=== PATIENT | female | born 1980 | race Caucasian/White ===

== ENCOUNTER → 2018-03-03 17:24 | Outpatient (CLI) | payer OTHER, SELFPAY ==
--- NOTE | 2018-03-03 17:29 | DI.RAD.S_ITS ---
PROCEDURE: XR KNEE LT 3V INDICATIONS: LEFT KNEE PAIN TECHNIQUE: 3 views of the knee were acquired. COMPARISON: None. FINDINGS: Bones: No fractures or dislocations. No suspicious bony lesions. Moderate medial compartment and lateral facet degenerative osteoarthritis involving the knee, without effusion or definite loose body found. There are several small calcifications at the posterior mesial lateral view that may represent osteochondral loose bodies within a Harris's cyst. Soft tissues: No joint effusion. No suspicious soft tissue calcifications. IMPRESSION: Osteoarthritic change is most prominent at the medial compartment and the lateral facet of the patellofemoral joint. As discussed above on the lateral view there are several small rounded calcifications superimposed on the posterior border of the knee potentially within a Harris's cyst. This, however, in this position could conceivably represent intra-articular loose bodies. MR scanning would assist in differentiating between these possibilities. Dictated by: Melvin Gillespie M.D. on 03/04/2018 at 6:58 Approved by: Melvin Gillespie M.D. on 03/04/2018 at 8:15
== END ==
PROVIDERS: Visit Provider Family Medicine
DX: M25.562 Pain in left knee (principal); M17.12 Unilateral primary osteoarthritis, left knee
CPT/HCPCS: 73562

== ENCOUNTER → 2022-02-17 10:10 | Outpatient (CLI) | payer BC, SELFPAY ==
--- NOTE | 2022-02-17 10:12 | DI.MRI.S_ITS ---
PROCEDURE: MR KNEE LT WO CON INDICATIONS: Pain in left knee TECHNIQUE: Noncontrast sagittal PD fast spin echo and T2 fast spin echo with fat saturation, sagittal 3-D FLASH with fat saturation; coronal T1 spin echo and PD fast spin echo with fat saturation, and axial PD fast spin echo with fat saturation through the knee. COMPARISON: [facility], CR, XR KNEE LT 3V, 03/03/2018, 17:29. FINDINGS: Image quality: Excellent. Menisci: There is lateral meniscal extrusion. There is complex tear of the posterior horn and body of the lateral meniscus, extending to the posterior root. There is nondisplaced horizontal tear in the peripheral aspect of the posterior horn and body of the medial meniscus. Cruciate ligaments: Anterior cruciate ligament is small, which may be congenital. There is suggestion of chronic partial tear of the distal ACL and mucoid degeneration of ACL. The posterior cruciate ligament appears intact. Medial structures: The medial collateral ligament appears intact. The semimembranosus tendon insertions and meniscocapsular junction appear intact. Visualized portions of the pes anserinus tendons appear normal. No abnormal bursal fluid. Lateral structures: The lateral collateral ligament and the biceps femoris tendon appear intact. The popliteus tendon appears normal. Iliotibial band appears normal. Anterior structures: The quadriceps and patellar tendons appear intact. Patellar alignment is normal. No femoral trochlear dysplasia or ventral trochlear prominence. No edema in the infrapatellar fat pad. Bones and cartilage: No bone marrow contusions or fractures. There is tricompartmental cartilage thinning and fibrillation, most pronounced in the lateral femorotibial compartment with cartilage denuded weight-bearing articular surface in the lateral femoral condyle and lateral tibial plateau. Joint space: There is moderate sized knee joint effusion. There is a moderate size multilocular Harris's cyst. Normal appearing synovial plicae are incidentally noted. Small ganglion cyst or synovial cysts are seen in the posterior superior knee joint. Multiple intra-articular bodies are noted in the posterior knee joint at the level of the intercondylar notch. Varicose veins are noted in the left lower extremity. A lymph node is seen in the distal posterior thigh measuring 0.8 cm in short axis. IMPRESSION: 1. Bladder meniscal extrusion with complex tear of the posterior horn and body. 2. Nondisplaced tear of the posterior horn and body of the medial meniscus. 3. Question chronic partial tear of distal ACL. There is mucoid degeneration of ACL. 4. Severe cartilage loss in the lateral femorotibial compartment with denuded weight-bearing articular surface in the lateral femoral condyle and lateral tibial plateau. 5. A moderate-sized Harris's cyst. 6. There are intra-articular bodies in the posterior knee joint. 7. Moderate sized knee joint effusion. Dictated by: Alex Baptiste M.D. on 02/21/2022 at 7:32 Approved by: Alex Baptiste M.D. on 02/21/2022 at 9:49
== END ==
PROVIDERS: Referring Provider Family Medicine; Visit Provider Family Medicine
DX: S83.232A Complex tear of medial meniscus, current injury, left knee, initial encounter (principal); M25.562 Pain in left knee; M71.22 Synovial cyst of popliteal space [Baker], left knee; M25.462 Effusion, left knee
CPT/HCPCS: 73721

== ENCOUNTER 2022-05-24 09:18 | Inpatient (IN) | payer BC, SELFPAY ==
[2022-05-24] VITALS (82 sets, daily range): BP systolic 107–208; BP diastolic 72–123; PULSE 83–121; RESP 13–34; TEMP 36.4–36.8; O2SAT 91–99; BMI 53.0
--- NOTE | 2022-05-24 09:28 | DI.RAD.S_ITS ---
PROCEDURE: XR CHEST 1V INDICATIONS: Shortness of breath TECHNIQUE: One view of the chest was acquired. COMPARISON: None. FINDINGS: Surgical changes and devices: None. Lungs and pleura: Lungs are clear. No pleural effusions or pneumothorax. Mediastinum: Mediastinal contours appear normal. Cardiomegaly. Bones and chest wall: No suspicious bony lesions. Overlying soft tissues appear unremarkable. IMPRESSION: Cardiomegaly. No evidence acute pulmonary process. Dictated by: Mickey Gleason M.D. on 05/24/2022 at 10:01 Approved by: Mickey Gleason M.D. on 05/24/2022 at 10:02
[2022-05-24 10:11] LABS: Add Manual Diff / Slide Review NO; Basophils Absolute Auto 100 /uL (0-100); Eosinophils Absolute Auto 100 /uL (0-450); Eosinophils Percent Auto 0.9 % (2-4); Hemoglobin 12.7 g/dL (12.0-16.0); Lymphocytes Absolute Auto 2400 /uL (1100-4500); Lymphocytes Percent Auto 24.9 % (25-40); Mean Corpuscular HGB Conc 32.5 % (30-36); Mean Corpuscular Hemoglobin 25.5 PG (26-34); Mean Corpuscular Volume 78.6 fL (80-100); Monocytes Absolute Auto 700 /uL (0-900); Neutrophils Absolute Auto 6400 /uL (1500-7000); Neutrophils Percent Auto 66.2 % (50-75); Platelet Count 168 X10^3/uL (150-400); Red Blood Cell Count 4.96 X10^6/uL (4.0-5.2); Red Cell Distribution Width 16.8 % (11.6-14.8); White Blood Cell Count 9.6 X10^3/uL (4.5-11.0)
[2022-05-24 10:12] LABS: INR 1.1 (0.9-1.3); Prothrombin Time 12.9 SECONDS (10.1-12.7)
[2022-05-24 10:17] LABS: Alanine Aminotransferase 26 IU/L (<35); Albumin 4.1 g/dL (3.5-5.0); Albumin Globulin Ratio 1.1 (1.0-2.8); Alkaline Phosphatase 103 U/L (38-126); Aspartate Aminotransferase 25 IU/L (14-36); Bilirubin Total 1.3 mg/dL (0.2-1.3); Blood Urea Nitrogen 17 mg/dL (7-17); Calcium 9.3 mg/dL (8.4-10.2); Carbon Dioxide 23 mmol/L (22-32); Chloride 104 mmol/L (98-107); Estimated Glomerular Filt Rate > 60 mL/min (>60); Globulin 3.8 g/dL (1.7-4.1); Glucose 101 mg/dL (70-100); HEMOLYSIS < 15 (0-50); Potassium 3.8 mmol/L (3.4-5.1); Sodium 136 mmol/L (137-145); Total Protein 7.9 g/dL (6.3-8.2)
[2022-05-24 10:29] LABS: NT-proBNP (BNP-Adult 18+) 606 pg/mL (<125); Troponin I 0.014 ng/mL (0.01-0.034)
--- NOTE | 2022-05-24 10:29 | ED_ITS ---
HPI - Chest Pain General Chief Complaint: Shortness of Breath/Dyspnea Stated Complaint: sent by Kelin HUMMEL/SOB/chest pain T-1 Time Seen by Provider: 05/24/22 10:28 Source: patient Mode of arrival: Ambulatory Limitations: no limitations History of Present Illness HPI narrative: This is a 41-year-old female with history of hypertension on amlodipine, chlorthalidone and meloxicam daily who states yesterday she developed a little bit of a headache around 12 30 in the afternoon which is not atypical she states she does get migraine she states this isn't been quite as intense. She took 1 of her 's [place] at 6:30 a.m. in the evening later that night when she went to lay flat she felt wheezy and short of breath and sort of gurgly in her chest. When she sat up it helped the wheezing gurgly sound go away but she still feels a little short of breath and that has been persistent. She is had a little bit of substernal chest pain radiate a little bit to left arm and left side. She states patient states she is noticed a little bit of exertional dyspnea. She states she has not had similar symptoms in the past except for when she lays flat she will sometimes feel a little wheezy or short of breath. She states it is never been persistent. She is been a little bit of sweaty intermittently at night, she would some nausea. She denies any vomiting. She swelling of her extremities. No issues with bowel movements or urination. She states no new changes for her headache and that it is not as intense as her typical migraines. She has not had any other new neurologic changes. She denies cough cold or congestion. Patient states she took her home medications including her amlodipine 5 mg, chlorthalidone 25 mg for 430 this morning she usually takes it at 8:00 a.m. patient states no prior surgeries. She did try some Tylenol, naproxen hydrocodone at home last night. No known drug allergies. No tobacco, no alcohol, no illicit. Family history she has several uncles all over the age of 50 who had cardiac issues as well as her mom. She does not believe anyone was under the age of 50 or 60 before they had medical issues. Dr. Gurrola is her primary care. Related Data Home Medications Medication Instructions Recorded Confirmed amlodipine 5 mg tablet 5 mg PO DAILY 05/24/22 05/24/22 chlorthalidone 25 mg tablet 25 mg PO DAILY 05/24/22 05/24/22 Allergies Allergy/AdvReac Type Severity Reaction Status Date / Time No Known Drug Allergies Allergy Verified 05/24/22 09:28 Review of Systems Review of Systems ROS Unobtainable: All systems reviewed & are unremarkable except as noted in HPI and below Patient History Medical History HTN (hypertension) Surgical History No pertinent past surgical history Family History Mother CAD (coronary artery disease) Uncle CAD (coronary artery disease) Social History Smoking Status: Unknown if ever smoked Smoking Status: Unknown if ever smoked alcohol intake frequency: holidays/special occasions only Substance Use Type: does not use Exam Narrative Exam Narrative: GENERAL: Alert and oriented x three, female in mild distress. HEENT: Head normocephalic, atraumatic, EOMI, pupils reactive, face symmetric, moist mucous membranes NECK: Supple, full range of motion CARDIOVASCULAR: Regular rate and rhythm without murmurs, rubs or gallops. No JVD. No edema bilateral lower extremities. RESPIRATORY: Breath sounds equal bilaterally, no wheezes rales or rhonchi. No tachypnea. Speaks in full sentences. ABDOMEN: Soft, nontender. Normoactive bowel sounds all 4 quadrants. No guarding or rebound, rigidity, no mass : No CVA tenderness EXTREMITIES: Normal range of motion, no clubbing or edema. Neurovascularly intact NEUROLOGICAL: Cranial nerves II through XII grossly intact. Moving all extremities SKIN: Warm, dry, no petechiae, no rashes or lesions. Initial Vital Signs Initial Vital Signs: Vital Signs Temperature 98.2 F 05/24/22 09:23 Pulse Rate 121 H 05/24/22 09:23 Respiratory Rate 20 05/24/22 09:23 Blood Pressure 208/123 H 05/24/22 09:23 Pulse Oximetry 96 05/24/22 09:23 Oxygen Delivery Method Room Air 05/24/22 09:23 Course Orders Ordered: ED Orders 05/24/22 09:28 XR chest 1V Stat 05/24/22 09:30 Respiratory Panel (Film Array) Stat 05/24/22 09:35 EKG-12 Lead Stat 05/24/22 10:00 Complete Blood Count AUTO DIFF Stat Comprehensive Metabolic Panel Stat D Dimer Stat Lactate (Lactic Acid) Stat NT-proBNP (BNP-Adult 18+) Stat Prothrombin Time INR Stat Troponin I Stat 05/24/22 11:13 CT angio chest PE protocol Stat 05/24/22 12:03 Trop I [Troponin I] Stat Acetaminophen (Acetaminophen 325 Mg Tablet) 975 mg PO Q8H PRN PRN Reason: Fever/Mild Pain (1-3) Aspirin (Aspirin Ec 81 Mg Tablet) 81 mg PO DAILY YESSENIA Atorvastatin Calcium (Atorvastatin 20 Mg Tablet) 40 mg PO BEDTIME YESSENIA Enoxaparin Sodium (Enoxaparin 40 Mg/0.4 Ml Syringe) 40 mg SUBCUT DAILY YESSENIA Naloxone HCl (Naloxone 0.4 Mg/Ml Vial) 0.2 mg IV Q2MIN PRN PRN Reason: Opiate Reversal Ondansetron HCl (Ondansetron 4 Mg/2 Ml Inj) 4 mg IV Q4HR PRN PRN Reason: Nausea And Vomiting Last Admin: 05/24/22 15:13 Dose: 4 mg Documented By: RB Ondansetron HCl (Ondansetron 4 Mg/2 Ml Inj) 4 mg IV Q8HR PRN PRN Reason: Nausea And Vomiting Oxycodone HCl (Oxycodone Ir 5 Mg Tablet) 5 mg PO Q4HR PRN PRN Reason: Pain, Moderate (4-6) Discontinued Medications Acetaminophen (Acetaminophen 325 Mg Tablet) 975 mg PO NOW ONE Stop: 05/24/22 13:24 Last Admin: 05/24/22 13:32 Dose: 975 mg Documented By: RB Aspirin (Aspirin 81 Mg Chew Tab) 324 mg PO NOW ONE Stop: 05/24/22 10:50 Last Admin: 05/24/22 10:56 Dose: 324 mg Documented By: KB Furosemide (Furosemide 40 Mg/4 Ml Vial) 40 mg IV NOW ONE Stop: 05/24/22 12:15 Last Admin: 05/24/22 12:40 Dose: 40 mg Documented By: MANNY Morphine Sulfate (Morphine 4 Mg/Ml Inj) 4 mg IV NOW ONE Stop: 05/24/22 11:14 Last Admin: 05/24/22 11:29 Dose: 4 mg Documented By: MADELIN Nitroglycerin (Nitroglycerin 0.4 Mg Sl Tab) 0.4 mg SL NOW ONE Stop: 05/24/22 10:46 Last Admin: 05/24/22 10:56 Dose: 0.4 mg Documented By: MADELIN Vital Signs Vital signs: Vital Signs - 8 hr 05/24/22 10:56 05/24/22 09:40 05/24/22 09:45 Pulse Rate 101 H 91 H 102 H Respiratory Rate 22 19 Blood Pressure 163/91 H Pulse Oximetry 96 97 05/24/22 09:50 05/24/22 09:55 05/24/22 10:00 Pulse Rate 93 H 99 H 95 H Respiratory Rate 30 H 20 29 H Blood Pressure Pulse Oximetry 98 97 96 05/24/22 10:10 05/24/22 10:15 05/24/22 10:20 Pulse Rate 104 H 96 H 97 H Respiratory Rate 23 23 Blood Pressure Pulse Oximetry 96 97 96 05/24/22 10:25 05/24/22 10:30 05/24/22 10:35 Pulse Rate 94 H 92 H 97 H Respiratory Rate 23 22 18 Blood Pressure Pulse Oximetry 97 96 96 05/24/22 10:40 05/24/22 10:45 05/24/22 10:50 Pulse Rate 95 H 105 H 100 H Respiratory Rate 32 H 25 H 21 Blood Pressure Pulse Oximetry 97 97 97 05/24/22 10:55 05/24/22 10:56 05/24/22 10:56 Pulse Rate 97 H 100 H Respiratory Rate 23 28 H Blood Pressure 169/93 H Pulse Oximetry 97 97 05/24/22 11:00 05/24/22 11:00 05/24/22 11:05 Pulse Rate 106 H Respiratory Rate 20 Blood Pressure 148/90 H 139/81 Pulse Oximetry 96 05/24/22 11:05 05/24/22 11:10 05/24/22 11:10 Pulse Rate 103 H 98 H Respiratory Rate 21 13 Blood Pressure 136/79 Pulse Oximetry 95 95 05/24/22 11:15 05/24/22 11:15 05/24/22 11:26 Pulse Rate 91 H 85 Respiratory Rate 24 Blood Pressure 137/74 Pulse Oximetry 95 99 05/24/22 11:30 05/24/22 11:31 05/24/22 11:31 Pulse Rate 90 87 Respiratory Rate 19 22 Blood Pressure 142/84 H Pulse Oximetry 97 97 05/24/22 11:35 05/24/22 11:40 05/24/22 11:45 Pulse Rate 91 H 89 86 Respiratory Rate 19 21 21 Blood Pressure Pulse Oximetry 93 95 95 05/24/22 11:50 05/24/22 11:55 05/24/22 12:00 Pulse Rate 93 H 91 H 93 H Respiratory Rate 21 18 Blood Pressure Pulse Oximetry 94 94 91 05/24/22 12:05 05/24/22 12:10 05/24/22 12:15 Pulse Rate 95 H 91 H 95 H Respiratory Rate 24 Blood Pressure Pulse Oximetry 94 92 95 05/24/22 12:20 05/24/22 12:25 05/24/22 12:30 Pulse Rate 95 H 95 H 95 H Respiratory Rate 25 H 27 H Blood Pressure Pulse Oximetry 95 95 97 05/24/22 12:35 05/24/22 12:40 05/24/22 12:45 Pulse Rate 98 H 99 H 100 H Respiratory Rate 21 30 H 34 H Blood Pressure Pulse Oximetry 97 96 96 05/24/22 12:50 05/24/22 12:55 05/24/22 13:02 Pulse Rate 100 H 92 H 99 H Respiratory Rate 30 H 19 20 Blood Pressure Pulse Oximetry 95 95 94 05/24/22 13:05 05/24/22 13:10 05/24/22 13:15 Pulse Rate 88 92 H 94 H Respiratory Rate 20 25 H 18 Blood Pressure Pulse Oximetry 97 94 93 05/24/22 13:18 05/24/22 13:18 05/24/22 13:20 Pulse Rate 93 H 94 H Respiratory Rate 20 Blood Pressure 145/92 H Pulse Oximetry 93 95 05/24/22 13:25 05/24/22 13:30 05/24/22 13:35 Pulse Rate 93 H 95 H 93 H Respiratory Rate 18 24 Blood Pressure Pulse Oximetry 92 97 96 05/24/22 13:40 05/24/22 13:45 05/24/22 13:50 Pulse Rate 98 H 97 H 99 H Respiratory Rate Blood Pressure Pulse Oximetry 94 96 96 05/24/22 13:55 Pulse Rate 96 H Respiratory Rate Blood Pressure Pulse Oximetry 97 MDM - Chest Pain Lab Data 05/24/22 10:00 05/24/22 10:00 Labs: Lab Results 05/24/22 05/24/22 05/24/22 Range/Units 09:30 10:00 10:00 WBC 9.6 (4.5-11.0) X10^3/uL RBC 4.96 (4.0-5.2) X10^6/uL Hgb 12.7 (12.0-16.0) g/dL Hct 39.0 (36-46) % MCV 78.6 L (80-100) fL MCH 25.5 L (26-34) PG MCHC 32.5 (30-36) % RDW 16.8 H (11.6-14.8) % Plt Count 168 (150-400) X10^3/uL Neut % (Auto) 66.2 (50-75) % Lymph % (Auto) 24.9 L (25-40) % Bowman % (Auto) 7.0 (3-14) % Eos % (Auto) 0.9 L (2-4) % Baso % (Auto) 1.0 (0-2) % Neut # (Auto) 6400 (8911-4418) /uL Lymph # (Auto) 2400 (6008-3238) /uL Bowman # (Auto) 700 (0-900) /uL Eos # (Auto) 100 (0-450) /uL Baso # (Auto) 100 (0-100) /uL PT 12.9 H (10.1-12.7) SECONDS INR 1.1 (0.9-1.3) D-Dimer (<500) ng/ml Sodium (137-145) mmol/L Potassium (3.4-5.1) mmol/L Chloride (98-107) mmol/L Carbon Dioxide (22-32) mmol/L BUN (7-17) mg/dL Creatinine (0.52-1.04) mg/dL Estimated GFR (>60) mL/min BUN/Creatinine Ratio (6-22) Glucose (70-100) mg/dL Lactate (0.7-2.1) mmol/L Calcium (8.4-10.2) mg/dL Total Bilirubin (0.2-1.3) mg/dL AST (14-36) IU/L ALT (<35) IU/L Alkaline Phosphatase (38-126) U/L Troponin I (0.01-0.034) ng/mL NT-Pro-B Natriuret Pep (<125) pg/mL Total Protein (6.3-8.2) g/dL Albumin (3.5-5.0) g/dL Globulin (1.7-4.1) g/dL Albumin/Globulin Ratio (1.0-2.8) Chlamy pneumoniae PCR Not detected (Not Detect) Adenovirus (PCR) Not detected (Not Detect) B. pertussis DNA (PCR) Not detected (Not Detecte) B.parapertussis DNA PCR Not detected (Not Detecte) Coronavirus OC43 (PCR) Not detected (Not Detect) Coronavirus HKU1 (PCR) Not detected (Not Detect) Coronavirus 229E (PCR) Not detected (Not Detect) SARS-CoV-2 (PCR) Not detected (Not Detecte) Coronavirus NL63 (PCR) Not detected (Not Detect) Human Metapneumovir PCR Not detected (Not Detect) Influenza Type A (PCR) Not detected (Not Detect) Influenza Type B (PCR) Not detected (Not Detect) M. pneumoniae (PCR) Not detected (Not Detect) Parainfluenza 1 (PCR) Not detected (Not Detect) Parainfluenza 2 (PCR) Not detected (Not Detect) Parainfluenza 3 (PCR) Not detected (Not Detect) Parainfluenza 4 (PCR) Not detected (Not Detect) RSV (PCR) Not detected (Not Detect) Entero/Rhino (PCR) Not detected (Not Detect) 05/24/22 05/24/22 05/24/22 Range/Units 10:00 10:00 10:00 WBC (4.5-11.0) X10^3/uL RBC (4.0-5.2) X10^6/uL Hgb (12.0-16.0) g/dL Hct (36-46) % MCV (80-100) fL MCH (26-34) PG MCHC (30-36) % RDW (11.6-14.8) % Plt Count (150-400) X10^3/uL Neut % (Auto) (50-75) % Lymph % (Auto) (25-40) % Bowman % (Auto) (3-14) % Eos % (Auto) (2-4) % Baso % (Auto) (0-2) % Neut # (Auto) (1286-1749) /uL Lymph # (Auto) (3183-9072) /uL Bowman # (Auto) (0-900) /uL Eos # (Auto) (0-450) /uL Baso # (Auto) (0-100) /uL PT (10.1-12.7) SECONDS INR (0.9-1.3) D-Dimer 1882 H (<500) ng/ml Sodium 136 L (137-145) mmol/L Potassium 3.8 (3.4-5.1) mmol/L Chloride 104 (98-107) mmol/L Carbon Dioxide 23 (22-32) mmol/L BUN 17 (7-17) mg/dL Creatinine 0.85 (0.52-1.04) mg/dL Estimated GFR > 60 (>60) mL/min BUN/Creatinine Ratio 20.0 (6-22) Glucose 101 H (70-100) mg/dL Lactate 1.0 (0.7-2.1) mmol/L Calcium 9.3 (8.4-10.2) mg/dL Total Bilirubin 1.3 (0.2-1.3) mg/dL AST 25 (14-36) IU/L ALT 26 (<35) IU/L Alkaline Phosphatase 103 (38-126) U/L Troponin I 0.014 (0.01-0.034) ng/mL NT-Pro-B Natriuret Pep 606 H (<125) pg/mL Total Protein 7.9 (6.3-8.2) g/dL Albumin 4.1 (3.5-5.0) g/dL Globulin 3.8 (1.7-4.1) g/dL Albumin/Globulin Ratio 1.1 (1.0-2.8) Chlamy pneumoniae PCR (Not Detect) Adenovirus (PCR) (Not Detect) B. pertussis DNA (PCR) (Not Detecte) B.parapertussis DNA PCR (Not Detecte) Coronavirus OC43 (PCR) (Not Detect) Coronavirus HKU1 (PCR) (Not Detect) Coronavirus 229E (PCR) (Not Detect) SARS-CoV-2 (PCR) (Not Detecte) Coronavirus NL63 (PCR) (Not Detect) Human Metapneumovir PCR (Not Detect) Influenza Type A (PCR) (Not Detect) Influenza Type B (PCR) (Not Detect) M. pneumoniae (PCR) (Not Detect) Parainfluenza 1 (PCR) (Not Detect) Parainfluenza 2 (PCR) (Not Detect) Parainfluenza 3 (PCR) (Not Detect) Parainfluenza 4 (PCR) (Not Detect) RSV (PCR) (Not Detect) Entero/Rhino (PCR) (Not Detect) 05/24/22 Range/Units 12:03 WBC (4.5-11.0) X10^3/uL RBC (4.0-5.2) X10^6/uL Hgb (12.0-16.0) g/dL Hct (36-46) % MCV (80-100) fL MCH (26-34) PG MCHC (30-36) % RDW (11.6-14.8) % Plt Count (150-400) X10^3/uL Neut % (Auto) (50-75) % Lymph % (Auto) (25-40) % Bowman % (Auto) (3-14) % Eos % (Auto) (2-4) % Baso % (Auto) (0-2) % Neut # (Auto) (0932-9666) /uL Lymph # (Auto) (5664-6552) /uL Bowman # (Auto) (0-900) /uL Eos # (Auto) (0-450) /uL Baso # (Auto) (0-100) /uL PT (10.1-12.7) SECONDS INR (0.9-1.3) D-Dimer (<500) ng/ml Sodium (137-145) mmol/L Potassium (3.4-5.1) mmol/L Chloride (98-107) mmol/L Carbon Dioxide (22-32) mmol/L BUN (7-17) mg/dL Creatinine (0.52-1.04) mg/dL Estimated GFR (>60) mL/min BUN/Creatinine Ratio (6-22) Glucose (70-100) mg/dL Lactate (0.7-2.1) mmol/L Calcium (8.4-10.2) mg/dL Total Bilirubin (0.2-1.3) mg/dL AST (14-36) IU/L ALT (<35) IU/L Alkaline Phosphatase (38-126) U/L Troponin I 0.018 (0.01-0.034) ng/mL NT-Pro-B Natriuret Pep (<125) pg/mL Total Protein (6.3-8.2) g/dL Albumin (3.5-5.0) g/dL Globulin (1.7-4.1) g/dL Albumin/Globulin Ratio (1.0-2.8) Chlamy pneumoniae PCR (Not Detect) Adenovirus (PCR) (Not Detect) B. pertussis DNA (PCR) (Not Detecte) B.parapertussis DNA PCR (Not Detecte) Coronavirus OC43 (PCR) (Not Detect) Coronavirus HKU1 (PCR) (Not Detect) Coronavirus 229E (PCR) (Not Detect) SARS-CoV-2 (PCR) (Not Detecte) Coronavirus NL63 (PCR) (Not Detect) Human Metapneumovir PCR (Not Detect) Influenza Type A (PCR) (Not Detect) Influenza Type B (PCR) (Not Detect) M. pneumoniae (PCR) (Not Detect) Parainfluenza 1 (PCR) (Not Detect) Parainfluenza 2 (PCR) (Not Detect) Parainfluenza 3 (PCR) (Not Detect) Parainfluenza 4 (PCR) (Not Detect) RSV (PCR) (Not Detect) Entero/Rhino (PCR) (Not Detect) Point of Care Testing Test Results Negative Urine Dip Bedside Urine Glucose Negative Bedside Urine Bilirubin - Negative Bedside Urine Ketone - Negative Urine Specific [place] 1.010 Bedside Urine Occult Blood - Negative Bedside Urine pH 6.0 Bedside Urine Protein - Negative Bedside Urine Urobilinogen - Negative Bedside Urine Nitrite - Negative Bedside Urine Leukocytes - Negative Esterase Imaging Data Chest x-ray: Radiologist's Impression: [address] [address] XRay Report Signed Patient: [place] Prieto MR#: [id number] : 1980 Acct:[id number] Age/Sex: 41 / F Date of Service: 05/24/22 Loc: ED Accession Number: [id number] ?? Procedure: XR chest 1V Ordering Provider: Gail Sun D.O. PROCEDURE:? XR CHEST 1V ? INDICATIONS:? Shortness of breath ? TECHNIQUE:? One view of the chest was acquired.? ? COMPARISON:? None. ? FINDINGS:? ? Surgical changes and devices:? None.? ? Lungs and pleura:? Lungs are clear.? No pleural effusions or pneumothorax.? ? Mediastinum:? Mediastinal contours appear normal.? Cardiomegaly. ? Bones and chest wall:? No suspicious bony lesions.? Overlying soft tissues appear unremarkable.? ? IMPRESSION:? Cardiomegaly. No evidence acute pulmonary process. ? ? ? Dictated by: Mickey Gleason M.D. on 05/24/2022 at 10:01 ? ? Approved by: Mickey Gleason M.D. on 05/24/2022 at 10:02?? CT scan - chest: Radiologist's Impression: [place] [address] CT Scan Report Signed Patient: [place] Prieto MR#: [id number] : 1980 Acct:[id number] Age/Sex: 41 / F Date of Service: 05/24/22 Loc: ED Accession Number: [id number] ?? Procedure: CT angio chest PE protocol Ordering Provider: Gail Sun D.O. PROCEDURE:? CT ANGIO CHEST PE PROTOCOL ? INDICATIONS:? cp, sob ? TECHNIQUE:? After the administration of intravenous contrast, 2 mm thick sections acquired from the pulmonary apices to the posterior costophrenic angles.? 3-dimensional maximum intensity projection (MIP) coronal and sagittal reformats were then acquired through the thorax.? For radiation dose reduction, the following was used:? automated exposure control, adjustment of mA and/or kV according to patient size.? ? COMPARISON:? None. ? FINDINGS:? Image quality:? Excellent.? ? Pulmonary arteries:? Pulmonary arteries are normal in size, and demonstrate no intraluminal filling defects to suggest central pulmonary embolism.? ? Lungs and pleura:? Diffuse bilateral ground-glass opacities likely represent s ubtle changes of pulmonary edema.? There are moderate bilateral pleural effusions.? Central and peripheral airways are patent.? ? Mediastinum:? Heart size is normal, without pericardial effusion.? No mediastinal or hilar adenopathy.? Thoracic aorta is normal in caliber and enhancement.? Esophagus is normal in caliber, without hiatal hernia.? ? Bones and chest wall:? No suspicious bony lesions.? Ribs and thoracic spine appear intact throughout.? Thyroid gland is unremarkable.? No axillary or supraclavicular adenopathy.? ? Abdomen:? Visualized upper abdominal solid organs appear normal in the early arterial phase of enhancement.? ? IMPRESSION:? ? 1. No evidence acute pulmonary emboli. ? 2. Findings suggest an acute congestive heart failure exacerbation. ? ? Dictated by: Mickey Gleason M.D. on 05/24/2022 at 11:36 ? ? Approved by: Mickey Gleason M.D. on 05/24/2022 at 11:43?? ECG Data Attestation: I personally reviewed and interpreted this ECG as follows: Prior ECG tracings: not available for review Interpretation: Sinus tachycardia rate of 105 MN 160 QRS of [address] No acute [address] elevation or depression. Patient does not have priors for comparison. Normal sinus rhythm rate of 90 MN 170 QRS of [address] No [address] changes appreciated. No dynamic changes. [facility] Narrative Medical decision making narrative: This is a 41-year-old female who presents with complaint of chest pressure and shortness of breath that started last night when lying flat, she had a little bit of wheezing she does share audio recording that sounds more wet productive lungs with exploration. Patient on examination does not have any changes to her lungs, no appreciable swelling so much limited as BMI is 53 terms of examination. Patient notes that she is also been having more orthopnea today. Patient's labs show a normal CBC, CMP, lactate negative, LFTs are negative trope was 0.014 with a BNP of 606, respiratory panel was negative and chest x-ray shows some cardiomegaly but no obvious pulmonary edema or other acute changes. Patient is likely tachycardic and hypertensive, D-dimer was added on although this seems less likely as well as a repeat 2 hour troponin. Patient was given aspirin and nitro and on repeat evaluation. Patient's blood pressure come down to 160 prior to nitro but was given blood pressure is 130 but chest since chest pain and shortness of breath has improved. Patient's dimer is elevated less likely to have pulmonary emboli but she is tachycardic but hypertensive makes this less likely but CT angio was obtained to evaluate. Patient's headache did worsened after nitro was given a dose of pain medication. This did improve patient's chest pain and shortness of breath a pressure also improved at this time. Patient CT angio is negative does show changes consistent with pulmonary edema. Repeat troponin was negative with no dynamic EKG changes. Patient was given a dose of Lasix. Patient does have some risk factors cardiac-amezquita and discussed with hospitalist Dr. Holland who saw patient in department decision was made to keep patient for observation and ca rdiac workup. Discharge Plan Departure Patient Disposition: Admitted as Observation Clinical Impression: Congestive heart failure (CHF) Admit Date/Time: 05/24/22 13:55 Admit Provider: Tong Holland
[2022-05-24 10:38] LABS: Adenovirus Not Detected (Not Detect); B. parapertussis Not Detected (Not Detecte); Bordetella pertussis Not Detected (Not Detecte); Chlamydophila pneumoniae Not Detected (Not Detect); Coronavirus 229E Not Detected (Not Detect); Coronavirus HKU1 Not Detected (Not Detect); Coronavirus NL 63 Not Detected (Not Detect); Coronavirus OC43 Not Detected (Not Detect); Human Metapneumovirus Not Detected (Not Detect); Human Rhinovirus/Enterovirus Not Detected (Not Detect); Influenza A Not Detected (Not Detect); Influenza B Not Detected (Not Detect); Mycoplasma pneumoniae Not Detected (Not Detect); Parainfluenza Virus 1 Not Detected (Not Detect); Parainfluenza Virus 2 Not Detected (Not Detect); Parainfluenza Virus 3 Not Detected (Not Detect); Parainfluenza Virus 4 Not Detected (Not Detect); Respiratory Syncytial Virus Not Detected (Not Detect); SARS- CoV-2 Not Detected (Not Detecte)
[2022-05-24] MEDS: ASPIRIN 81 MG CHEW TAB 324 MG PO (10:56)
[2022-05-24] MEDS: NITROGLYCERIN 0.4 MG SL TAB SL (10:56)
[2022-05-24 11:00] LABS: D Dimer 1882 ng/ml (<500)
--- NOTE | 2022-05-24 11:13 | DI.CT.S_ITS ---
PROCEDURE: CT ANGIO CHEST PE PROTOCOL INDICATIONS: cp, sob TECHNIQUE: After the administration of intravenous contrast, 2 mm thick sections acquired from the pulmonary apices to the posterior costophrenic angles. 3-dimensional maximum intensity projection (MIP) coronal and sagittal reformats were then acquired through the thorax. For radiation dose reduction, the following was used: automated exposure control, adjustment of mA and/or kV according to patient size. COMPARISON: None. FINDINGS: Image quality: Excellent. Pulmonary arteries: Pulmonary arteries are normal in size, and demonstrate no intraluminal filling defects to suggest central pulmonary embolism. Lungs and pleura: Diffuse bilateral ground-glass opacities likely represent subtle changes of pulmonary edema. There are moderate bilateral pleural effusions. Central and peripheral airways are patent. Mediastinum: Heart size is normal, without pericardial effusion. No mediastinal or hilar adenopathy. Thoracic aorta is normal in caliber and enhancement. Esophagus is normal in caliber, without hiatal hernia. Bones and chest wall: No suspicious bony lesions. Ribs and thoracic spine appear intact throughout. Thyroid gland is unremarkable. No axillary or supraclavicular adenopathy. Abdomen: Visualized upper abdominal solid organs appear normal in the early arterial phase of enhancement. IMPRESSION: 1. No evidence acute pulmonary emboli. 2. Findings suggest an acute congestive heart failure exacerbation. Dictated by: Mickey Gleason M.D. on 05/24/2022 at 11:36 Approved by: Mickey Gleason M.D. on 05/24/2022 at 11:43
--- NOTE | 2022-05-24 11:14 | PC.NURSE ---
Pts chest tightness was a 7/10 prior to ntg. Pt now denies tightness in chest. Pts bp improved,increased ALICEA. Dr Sun aware.
[2022-05-24] MEDS: MORPHINE 4 MG/ML INJ IV (11:29)
[2022-05-24] MEDS: FUROSEMIDE 40 MG/4 ML VIAL IV (12:40)
[2022-05-24 12:43] LABS: Troponin I 0.018 ng/mL (0.01-0.034)
[2022-05-24] MEDS: ACETAMINOPHEN 325 MG TABLET 975 MG PO ×2 (13:32→20:30)
--- NOTE | 2022-05-24 14:02 | P.HP_ITS ---
History of Present Illness History of Present Illness Date Patient Seen: 05/24/22 Time Patient Seen: 14:02 Chief complaint: sent by Kelin WIC/SOB/chest pain T-1 Narrative: This is a 41 year old female with PMH of HTN, obesity who presented to the ER today with chest pain. Patient reports a headache yesterday afternoon, in the afternoon she took a norco given continued discomfort then developed some mild shortness of breath, particularly with lying flat. She also developed some chest presssure with radiation up her throat and into her neck at the time, it was m ore of a discomfort but worsened over the evening. Over the past two months patient has noted orthopnea, but this episode was worse and she had never felt this chest pressure. With increasing chest pressure she came in to be evaluated. She denies fever, chills, cough but does endorse dyspnea on exertion over the past few months as well. She denies lower extremity edema, nausea, vomiting, diarrhea, dysuria, urinary frequency, or abdominal pain. In the emergency room, patient was initially tachycardic (sinus), and hypertensive, but the remainder of her vital signs were unremarkable. Chest xray showed cardiomegaly, but no obvious fluid overload. D-dimer was elevated, and CTA was negative for PE but did show probable fluid overload with bilateral pleural effusions, but a normal heart size. EKG showed sinus tachycardia without evidence of ischemia. She had improvement in BP and chest discomfort with SL nitroglycerin. She was admitted for further evaluation of possible new diagnosis of heart failure and further risk stratification of her chest pain. [facility] Medical History HTN (hypertension) Surgical History No pertinent past surgical history Family History Mother CAD (coronary artery disease) Uncle CAD (coronary artery disease) Social History Smoking Status: Unknown if ever smoked Meds Home Medications and Allergies Home Medications Medication Instructions Recorded Confirmed Type amlodipine 5 mg tablet 5 mg PO DAILY 05/24/22 05/24/22 History chlorthalidone 25 mg tablet 25 mg PO DAILY 05/24/22 05/24/22 History Allergies Allergy/AdvReac Type Severity Reaction Status Date / Time No Known Drug Allergies Allergy Verified 05/24/22 09:28 Review of Systems Review of Systems Narrative: All other systems reviewed with the patient and are negative unless otherwise stated. Exam Vital Signs (past 8 hours): - 05/24/22 09:23 05/24/22 09:26 05/24/22 09:27 Temperature 98.2 F Pulse Rate 121 H 111 H Respiratory Rate 20 Blood Pressure 208/123 H Pulse Oximetry 96 96 97 Oxygen Delivery Method Room Air 05/24/22 09:27 05/24/22 09:30 05/24/22 10:56 Temperature Pulse Rate 102 H 101 H Respiratory Rate 24 Blood Pressure 208/123 H 163/91 H Pulse Oximetry 97 Oxygen Delivery Method 05/24/22 09:35 05/24/22 09:40 05/24/22 09:45 Temperature Pulse Rate 104 H 91 H 102 H Respiratory Rate 26 H 22 19 Blood Pressure Pulse Oximetry 98 96 97 Oxygen Delivery Method 05/24/22 09:50 05/24/22 09:55 05/24/22 10:00 Temperature Pulse Rate 93 H 99 H 95 H Respiratory Rate 30 H 20 29 H Blood Pressure Pulse Oximetry 98 97 96 Oxygen Delivery Method 05/24/22 10:10 05/24/22 10:15 05/24/22 10:20 Temperature Pulse Rate 104 H 96 H 97 H Respiratory Rate 23 23 Blood Pressure Pulse Oximetry 96 97 96 Oxygen Delivery Method 05/24/22 10:25 05/24/22 10:30 05/24/22 10:35 Temperature Pulse Rate 94 H 92 H 97 H Respiratory Rate 23 22 18 Blood Pressure Pulse Oximetry 97 96 96 Oxygen Delivery Method 05/24/22 10:40 05/24/22 10:45 05/24/22 10:50 Temperature Pulse Rate 95 H 105 H 100 H Respiratory Rate 32 H 25 H 21 Blood Pressure Pulse Oximetry 97 97 97 Oxygen Delivery Method 05/24/22 10:55 05/24/22 10:56 05/24/22 10:56 Temperature Pulse Rate 97 H 100 H Respiratory Rate 23 28 H Blood Pressure 169/93 H Pulse Oximetry 97 97 Oxygen Delivery Method 05/24/22 11:00 05/24/22 11:00 05/24/22 11:05 Temperature Pulse Rate 106 H Respiratory Rate 20 Blood Pressure 148/90 H 139/81 Pulse Oximetry 96 Oxygen Delivery Method 05/24/22 11:05 05/24/22 11:10 05/24/22 11:10 Temperature Pulse Rate 103 H 98 H Respiratory Rate 21 13 Blood Pressure 136/79 Pulse Oximetry 95 95 Oxygen Delivery Method 05/24/22 11:15 05/24/22 11:15 05/24/22 11:26 Temperature Pulse Rate 91 H 85 Respiratory Rate 24 Blood Pressure 137/74 Pulse Oximetry 95 99 Oxygen Delivery Method 05/24/22 11:30 05/24/22 11:31 05/24/22 11:31 Temperature Pulse Rate 90 87 Respiratory Rate 19 22 Blood Pressure 142/84 H Pulse Oximetry 97 97 Oxygen Delivery Method 05/24/22 11:35 05/24/22 11:40 05/24/22 11:45 Temperature Pulse Rate 91 H 89 86 Respiratory Rate 19 21 21 Blood Pressure Pulse Oximetry 93 95 95 Oxygen Delivery Method 05/24/22 11:50 05/24/22 11:55 05/24/22 12:00 Temperature Pulse Rate 93 H 91 H 93 H Respiratory Rate 21 18 Blood Pressure Pulse Oximetry 94 94 91 Oxygen Delivery Method 05/24/22 12:05 05/24/22 12:10 05/24/22 12:15 Temperature Pulse Rate 95 H 91 H 95 H Respiratory Rate 24 Blood Pressure Pulse Oximetry 94 92 95 Oxygen Delivery Method 05/24/22 12:20 05/24/22 12:25 05/24/22 12:30 Temperature Pulse Rate 95 H 95 H 95 H Respiratory Rate 25 H 27 H Blood Pressure Pulse Oximetry 95 95 97 Oxygen Delivery Method 05/24/22 12:35 05/24/22 12:40 05/24/22 12:45 Temperature Pulse Rate 98 H 99 H 100 H Respiratory Rate 21 30 H 34 H Blood Pressure Pulse Oximetry 97 96 96 Oxygen Delivery Method 05/24/22 12:50 05/24/22 12:55 05/24/22 13:02 Temperature Pulse Rate 100 H 92 H 99 H Respiratory Rate 30 H 19 20 Blood Pressure Pulse Oximetry 95 95 94 Oxygen Delivery Method 05/24/22 13:05 05/24/22 13:10 05/24/22 13:15 Temperature Pulse Rate 88 92 H 94 H Respiratory Rate 20 25 H 18 Blood Pressure Pulse Oximetry 97 94 93 Oxygen Delivery Method Oxygen Delivery Method Room Air Narrative Exam Narrative: General:? Patient is well developed and well nourished, in no distress at this time. HEENT:? Normocephalic, atraumatic, extraocular muscles intact, oral pharynx is clear and mucous membranes are moist. Neck: supple and symmetric, trachea is midline, no cervical adenopathy. Negative for JVD Chest:? Normal AP diameter and contour without kyphoscoliosis, no tachypnea, equal chest rise bilaterally. Lungs:? CTA b/l no wheezing rhonchi or rales. Cardio:?tachycardic with regular rhythm, no m/r/g. Abdomen: S NT ND. Musculoskeletal:? Muscle strength and tone are equal within normal limits, no deformity. Extremities: No edema or joint effusions. No cyanosis or clubbing. Skin:? Pale,? Warm to touch,dry and intact without rashes, ulcerations or petechiae.? Neuro:? Alert and orientated x3,? sensation to touch intact in all extremities, no gross deficits noted of cranial nerves. Psych:? Patient has a well-kept appearance, appropriate affect, mental status attitude thought context and judgment are appropriate for age. Objective ECG Impression: Sinus tachycardia as interpreted by me. Labs 05/24/22 10:00 05/24/22 10:00 Labs: Laboratory Results - last 24 hr 05/24/22 05/24/22 05/24/22 09:30 10:00 10:00 WBC 9.6 RBC 4.96 Hgb 12.7 Hct 39.0 MCV 78.6 L MCH 25.5 L MCHC 32.5 RDW 16.8 H Plt Count 168 Neut % (Auto) 66.2 Lymph % (Auto) 24.9 L [place] % (Auto) 7.0 Eos % (Auto) 0.9 L Baso % (Auto) 1.0 Neut # (Auto) 6400 Lymph # (Auto) 2400 [place] # (Auto) 700 Eos # (Auto) 100 Baso # (Auto) 100 PT 12.9 H INR 1.1 D-Dimer Sodium Potassium Chloride Carbon Dioxide BUN Creatinine Estimated GFR BUN/Creatinine Ratio Glucose Lactate Calcium Total Bilirubin AST ALT Alkaline Phosphatase Troponin I NT-Pro-B Natriuret Pep Total Protein Albumin Globulin Albumin/Globulin Ratio Chlamy pneumoniae PCR Not detected Adenovirus (PCR) Not detected B. pertussis DNA (PCR) Not detected B.parapertussis DNA PCR Not detected Coronavirus OC43 (PCR) Not detected Coronavirus HKU1 (PCR) Not detected Coronavirus 229E (PCR) Not detected SARS-CoV-2 (PCR) Not detected Coronavirus NL63 (PCR) Not detected Human Metapneumovir PCR Not detected Influenza Type A (PCR) Not detected Influenza Type B (PCR) Not detected M. pneumoniae (PCR) Not detected Parainfluenza 1 (PCR) Not detected Parainfluenza 2 (PCR) Not detected Parainfluenza 3 (PCR) Not detected Parainfluenza 4 (PCR) Not detected RSV (PCR) Not detected Entero/Rhino (PCR) Not detected 05/24/22 05/24/22 05/24/22 10:00 10:00 10:00 WBC RBC Hgb Hct MCV MCH MCHC RDW Plt Count Neut % (Auto) Lymph % (Auto) [place] % (Auto) Eos % (Auto) Baso % (Auto) Neut # (Auto) Lymph # (Auto) [place] # (Auto) Eos # (Auto) Baso # (Auto) PT INR D-Dimer 1882 H Sodium 136 L Potassium 3.8 Chloride 104 Carbon Dioxide 23 BUN 17 Creatinine 0.85 Estimated GFR > 60 BUN/Creatinine Ratio 20.0 Glucose 101 H Lactate 1.0 Calcium 9.3 Total Bilirubin 1.3 AST 25 ALT 26 Alkaline Phosphatase 103 Troponin I 0.014 NT-Pro-B Natriuret Pep 606 H Total Protein 7.9 Albumin 4.1 Globulin 3.8 Albumin/Globulin Ratio 1.1 Chlamy pneumoniae PCR Adenovirus (PCR) B. pertussis DNA (PCR) B.parapertussis DNA PCR Coronavirus OC43 (PCR) Coronavirus HKU1 (PCR) Coronavirus 229E (PCR) SARS-CoV-2 (PCR) Coronavirus NL63 (PCR) Human Metapneumovir PCR Influenza Type A (PCR) Influenza Type B (PCR) M. pneumoniae (PCR) Parainfluenza 1 (PCR) Parainfluenza 2 (PCR) Parainfluenza 3 (PCR) Parainfluenza 4 (PCR) RSV (PCR) Entero/Rhino (PCR) 05/24/22 12:03 WBC RBC Hgb Hct MCV MCH MCHC RDW Plt Count Neut % (Auto) Lymph % (Auto) [place] % (Auto) Eos % (Auto) Baso % (Auto) Neut # (Auto) Lymph # (Auto) [place] # (Auto) Eos # (Auto) Baso # (Auto) PT INR D-Dimer Sodium Potassium Chloride Carbon Dioxide BUN Creatinine Estimated GFR BUN/Creatinine Ratio Glucose Lactate Calcium Total Bilirubin AST ALT Alkaline Phosphatase Troponin I 0.018 NT-Pro-B Natriuret Pep Total Protein Albumin Globulin Albumin/Globulin Ratio Chlamy pneumoniae PCR Adenovirus (PCR) B. pertussis DNA (PCR) B.parapertussis DNA PCR Coronavirus OC43 (PCR) Coronavirus HKU1 (PCR) Coronavirus 229E (PCR) SARS-CoV-2 (PCR) Coronavirus NL63 (PCR) Human Metapneumovir PCR Influenza Type A (PCR) Influenza Type B (PCR) M. pneumoniae (PCR) Parainfluenza 1 (PCR) Parainfluenza 2 (PCR) Parainfluenza 3 (PCR) Parainfluenza 4 (PCR) RSV (PCR) Entero/Rhino (PCR) Assessment & Plan Assessment & Plan narrative: 1. Chest pain / pressure - Will check another troponin, ACS unlikely. HEART score is 4, or intermediate risk. Ideally would evaluate with stress testing. However, patient's obesity necessitates 2 day study most likely, and unfortunately first portion can only be done tomorrow, Saturday, with no availability for 2nd portion over the weekend. - discussed with cardiology, and patient. Will attempt stress portion of stress testing tomorrow, in hopes of a normal study and hopefully no need for resting portion. Echocardiogram has been ordered as well which may indicate lower likelihood of ischemic disease. - Asa, statin ordered - continue tele - TSH,A1c, lipids in the AM. 2. Orthopnea, possible new diagnosis of heart failure - TTE as noted above, with low BP after nitro will avoid attempt at diuresis for now. 3. HTN - mild hypotension with nitro. Hold home amlodipine and chlorthalidone, pending TTE may need alternative therapies. 4. Obesity - The patient is at much higher risk for medical and surgical complications because of her obesity. This increases the difficulty and complexity of medical and surgical interventions and increases the chances of poor outcomes such as morbidity and mortality. Code: Full, surrogate decision maker is patient's sposue DVT: Lovenox Dispo: admitted observation, pending above evaluation. Likely to discharge home. I have utilized all available immediate resources to obtain, update, or review the patient's current medications. Discussed plan of care with patient, family and bedside RN. Discussed and obtained additional history and plan from ER provider, and seasonal package handler. Quality MIPS - Admit I confirm the patient?s Advance Care Plan is present, Code status is documented, Surrogate decision maker is in patient?s record [If Yes, STOP here]: Yes
[2022-05-24] MEDS: ONDANSETRON 4 MG/2 ML INJ IV (15:13)
--- NOTE | 2022-05-24 15:44 | DI.ECHO.S_ITS ---
[place] [facility]---------+ [facility] +---------+ : : [address] : : : : [id number] : : : : Phone: [phone] Echocardiogram Report + + :Name: VENICE OLMSTEAD Study Date: 05/24/2022 Height: 62 in : :[facility] ReadingLocation: Weight: 290 lb : : Gender: Female BSA: 2.2 m2 : :: 1980 Age: 41 yrs BP: 107/72 mmHg: :Reason For Study: CHEST PAIN HR: 90 : :Ordering Physician: ALLI, : :MARI MARTINEZ Performed By: LISA LARRY : :Referring: MARI CARSON : + + Interpretation Summary This is a technically difficult study characterized by limited endocardial visualization and requiring Definity echocontrast. Indeterminate regular rhythm with wide QRS complexes. Normal LV size and wall thickness. Severe global hypokinesis. Ejection fraction is estimated at 25-30%. Mild LA enlargement; otherwise normal chamber sizes. Valves are not well seen. Suspect at least mild aortic stenosis and aortic regurgitation. No prior study available for comparison. Procedure: A two-dimensional transthoracic echocardiogram with color flow and Doppler was performed. The study quality was technically difficult. There is no prior echocardiogram noted for this patient. A contrast injection of Definity was performed to improve assessment of LV function. The patient was in normal sinus rhythm during the exam. Left Ventricle: Left ventricular wall thickness is mildly increased. Normal LV size. Left ventricular systolic function is severely reduced. The ejection fraction is estimated to be 25-30%. Distolic function cannot be assessed 'due to indeterminate rhythm and lack of definitive A wave'. Right Ventricle: The right ventricle is normal size. The right ventricular systolic function is normal. Atria: The left atrium is mildly dilated. Right atrial size is normal. Mitral Valve: The mitral valve leaflets appear mildly thickened, but open well. There is mild to moderate mitral regurgitation. Aortic Valve: The aortic valve is not well visualized. There is no aortic valve stenosis. There is mild aortic regurgitation. Tricuspid Valve: The tricuspid valve is not well visualized. No tricuspid regurgitation. Pulmonary artery pressures cannot be estimated because of the lack of a measurable TR jet velocity. Pulmonic Valve: The pulmonic valve is not well visualized. There is no pulmonic valvular regurgitation. Great Vessels: The aortic root is normal size. The ascending aorta could not be visualized. The IVC is of normal diameter and collapses greater than 50% with a sniff. This suggests a low right atrial pressure of 3 mm Hg. Pericardium/ Pleura There is no pericardial effusion. There is no pleural effusion. MMode/2D Measurements & Calculations LVIDd: 5.7 cm LVOT diam: 2.0 cm LVIDs: 4.6 cm Ao root diam: 2.6 cm FS: 19.3 % IVSd: 1.0 cm LVPWd: 1.1 cm LV velasquez. diameter/BSA (cm/m^2): 2.5 LV sys. diameter/BSA (cm/m^2): 2.1 LA A2 area: 22.6 cm2 RA long axis: 4.7 cm LA A4 area: 28.8 cm2 LA length (vol): 5.8 cm LA vol: 95.1 ml LA vol index: 42.5 ml/m2 LVLs ap4: 9.1 cm LVLd ap2: 10.5 cm LVLs ap2: 9.2 cm TAPSE_phl: 2.3 cm Doppler Measurements & Calculations Ao V2 max: 196.0 cm/sec LVOT Max Immanuel: 116.0 cm/sec Ao V2 mean: 151.0 cm/sec LV V1 max P.4 mmHg Ao max P.4 mmHg LV V1 VTI: 22.0 cm Ao mean P.0 mmHg JEANETH(I,D): 2.1 cm2 Ao V2 VTI: 33.4 cm JEANETH(V,D): 1.9 cm2 sev ratio: 0.66 JEANETH indexed to BSA (cm^2/m^2): 0.92 MV E max immanuel: 127.0 cm/sec PA V2 max: 109.0 cm/sec MV A max immanuel: 74.1 cm/sec PA V2 mean: 80.4 cm/sec MV E/A: 1.7 PA mean P.0 mmHg Med Peak E' Immanuel: 3.8 cm/sec PA pr(Accel): 36.3 mmHg E/E' med: 33.7 Lat Peak E' Immanuel: 9.8 cm/sec E/E' lat: 13.0 E/e' average: 23.3 MV dec time: 0.13 sec SV(LVOT): 69.1 ml AV VR_phl: 0.59 JEANETH(VTI)/BSA_phl: 0.92 MV P1/2t-pr_phl: 37.0 msec Electronically signed by: Yoana Hussein M.D. on Reading Physician:05/24/2022 06:15 PM
--- NOTE | 2022-05-24 16:03 | PC.NURSE ---
Pt arrived to unit @ 1550. A&Ox4, independent to ambulate. Pt voided upon arrival to room. No skin issues. Tele #1 placed, NSR and VS stable. Pt denies SOB, N/V or pain at this time. Oriented pt to room, bed and call light. Pt is low fall risk. Pt's daughter is at bedside and will be spending the night; bed made for her.
[2022-05-24 18:28] LABS: Troponin I < 0.012 ng/mL (0.01-0.034)
[2022-05-24] MEDS: OXYCODONE IR 5 MG TABLET PO (18:44)
[2022-05-24] MEDS: ATORVASTATIN 20 MG TABLET 40 MG PO (20:30)
--- NOTE | 2022-05-24 22:01 | PC.NURSE ---
Nightshift Pt spouse notified RN that when Pt was sleeping he noted that she was snoring and stopped breathing and gasped for air. RN notified respiratory therapy. Respiratory therapy reviewed Pt's history and recommended continuos Pulse Oxygen and if her O2 levels decrease while sleeping then will note and recommend CPAP. CAMACHO Bergman updated on situation and recommendation from respiratory therapy. Provider agreed. Order for continue pulse oxygen placed.
[2022-05-25] VITALS (10 sets, daily range): BP systolic 132–150; BP diastolic 74–90; PULSE 91–105; RESP 18–22; TEMP 35.9–36.7; O2SAT 94–97
[2022-05-25] MEDS: OXYCODONE IR 5 MG TABLET PO (06:04)
[2022-05-25 07:11] LABS: Add Manual Diff / Slide Review NO; Basophils Absolute Auto 100 /uL (0-100); Basophils Percent Auto 0.6 % (0-2); Eosinophils Absolute Auto 200 /uL (0-450); Eosinophils Percent Auto 2.3 % (2-4); Hematocrit 37.5 % (36-46); Hemoglobin 12.2 g/dL (12.0-16.0); Lymphocytes Absolute Auto 2700 /uL (1100-4500); Mean Corpuscular HGB Conc 32.6 % (30-36); Mean Corpuscular Hemoglobin 25.6 PG (26-34); Mean Corpuscular Volume 78.5 fL (80-100); Monocytes Absolute Auto 800 /uL (0-900); Monocytes Percent Auto 9.3 % (3-14); Neutrophils Absolute Auto 5100 /uL (1500-7000); Neutrophils Percent Auto 57.8 % (50-75); Platelet Count 169 X10^3/uL (150-400); Red Blood Cell Count 4.78 X10^6/uL (4.0-5.2); Red Cell Distribution Width 16.2 % (11.6-14.8); White Blood Cell Count 8.9 X10^3/uL (4.5-11.0)
[2022-05-25 07:14] LABS: BUN Creatinine Ratio 19.8 (6-22); Blood Urea Nitrogen 20 mg/dL (7-17); Calcium 8.9 mg/dL (8.4-10.2); Carbon Dioxide 26 mmol/L (22-32); Chloride 100 mmol/L (98-107); Cholesterol 173 mg/dL (140-199); Estimated Glomerular Filt Rate > 60 mL/min (>60); Glucose 111 mg/dL (70-100); HDL Cholesterol 42 mg/dL (40-60); HEMOLYSIS < 15 (0-50); LDL Cholesterol Calculated 109 mg/dL (<100); Magnesium 2.1 mg/dL (1.6-2.3); Potassium 3.8 mmol/L (3.4-5.1); Sodium 136 mmol/L (137-145); Triglycerides 112 mg/dL (35-150)
[2022-05-25 08:22] LABS: TSH w/ Reflex to FT4 2.62 uIU/mL (0.47-4.68)
[2022-05-25] MEDS: ASPIRIN EC 81 MG TABLET PO (08:29)
[2022-05-25] MEDS: ENOXAPARIN 40 MG/0.4 ML SYRINGE SUBCUT ×2 (08:29→22:40)
[2022-05-25 09:00] LABS: HEMOLYSIS < 15 (0-50); Iron 62 ug/dL (37-170)
[2022-05-25 09:11] LABS: Percent Iron Saturation 16 % (15-50); Total Iron Binding Capacity 379 ug/dL (265-497); Transferrin 279 mg/dL (206-381)
[2022-05-25 09:39] LABS: Ferritin 40 ng/mL (6-137)
[2022-05-25] MEDS: ACETAMINOPHEN 325 MG TABLET 975 MG PO ×2 (12:03→22:40)
--- NOTE | 2022-05-25 12:44 | CM.DPNOTE ---
DCP Note According to conversation in multidisciplinary rounds - patient on the transfer list for heart cath CM team will plan to follow along closely and can complete a full initial assessment of need if patient remains admitted at [facility]
[2022-05-25] MEDS: SENNOSIDES 8.6 MG TABLET PO (14:27)
--- NOTE | 2022-05-25 19:45 | P.PN_ITS ---
Subjective Subjective Interval history: 41-year-old female with hypertension, class 3 obesity with a BMI of 53 who was admitted yesterday w/chest pain/chest pressure, orthopnea, and new finding of a cardiomyopathy. Echo showed an EF of 25-30%, severe global hypokinesis was noted. Suspected at least mild and AR. Patient does continue to have orthopnea but denies any dyspnea with activity. She is been able to go to the bathroom w/o difficulty. No chest pain today. Original recommendation was for her to be transferred to [facility] for consideration of heart catheterization. There were no beds available. She has a headache today which has been managed with oxycodone. Exam Vital Signs (past 8 hours): - 05/25/22 12:00 05/25/22 16:00 05/25/22 15:37 Temperature 97.5 F L Pulse Rate 100 H Respiratory Rate 18 Blood Pressure 140/85 Pulse Oximetry 96 96 97 Oxygen Delivery Method Room Air Room Air Oxygen Flow Rate 0 0 0 Oxygen Delivery Method Room Air Oxygen Flow Rate 0 Narrative Exam Narrative: GEN: Adult female, Alert and oriented x 3, NAD HEENT:NC, Face symmetric CHEST: Respiratory excursions symmetric, CTAB CV: RRR, no M/R/G ABD: Soft, obese, NT/ND, BT present in all 4 quadrants, body habitus limits exam EXTR: warm, well perfused, no C/C/E SKIN: warm and dry, no rash NEURO: Alert and oriented x 3, nonfocal Objective Labs 05/25/22 06:10 05/25/22 06:10 Labs: Laboratory Results - last 24 hr 05/25/22 05/25/22 05/25/22 06:10 06:10 06:10 WBC 8.9 RBC 4.78 Hgb 12.2 Hct 37.5 MCV 78.5 L MCH 25.6 L MCHC 32.6 RDW 16.2 H Plt Count 169 Neut % (Auto) 57.8 Lymph % (Auto) 30.0 [place] % (Auto) 9.3 Eos % (Auto) 2.3 Baso % (Auto) 0.6 Neut # (Auto) 5100 Lymph # (Auto) 2700 [place] # (Auto) 800 Eos # (Auto) 200 Baso # (Auto) 100 Sodium 136 L Potassium 3.8 Chloride 100 Carbon Dioxide 26 BUN 20 H Creatinine 1.01 Estimated GFR > 60 BUN/Creatinine Ratio 19.8 Glucose 111 H Calcium 8.9 Magnesium 2.1 Iron TIBC % Saturation Transferrin Ferritin Triglycerides 112 Cholesterol 173 LDL Cholesterol, Calc 109 H HDL Cholesterol 42 TSH 2.62 05/25/22 05/25/22 06:18 06:18 WBC RBC Hgb Hct MCV MCH MCHC RDW Plt Count Neut % (Auto) Lymph % (Auto) [place] % (Auto) Eos % (Auto) Baso % (Auto) Neut # (Auto) Lymph # (Auto) [place] # (Auto) Eos # (Auto) Baso # (Auto) Sodium Potassium Chloride Carbon Dioxide BUN Creatinine Estimated GFR BUN/Creatinine Ratio Glucose Calcium Magnesium Iron 62 TIBC 379 % Saturation 16 Transferrin 279 Ferritin 40 Triglycerides Cholesterol LDL Cholesterol, Calc HDL Cholesterol TSH PFSH Medical History HTN (hypertension) Surgical History No pertinent past surgical history Family History Mother CAD (coronary artery disease) Uncle CAD (coronary artery disease) Social History household members: spouse and children Smoking Status: Unknown if ever smoked Assessment & Plan Assessment & Plan narrative: 1. Chest pain/pressure Patient denies any residual symptoms. Troponins have been negative. Heparin drip was not recommended. Originally there was a plan to obtain a stress test today, but as cardiac catheterization has been recommended, this was deferred. 2. New diagnosis of cardiomyopathy, systolic congestive heart failure Unclear etiology. Certainly could be ischemic given her underlying hypertension and obesity as well as some family history. Could also be secondary to right- sided disease that is ultimately led to left-sided failure versus another etiology. She appears euvolemic presently. Will likely need to titrate up on goal-directed therapies, inclusive of beta henry/SELAM inhibitor. She is on atorvastatin. She is also on aspirin. I discussed the case today with Dr. Larson who feels the patient may be able to continue outpatient workup, incl usive of cardiac catheterization. We will discuss again tomorrow and and come to a mutual decision about her disposition. 3. Hypertension Holding home amlodipine and chlorthalidone. Blood pressures are overall improving after an episode of hypotension with nitro. Will add low-dose lisinopril today. 4. Class 3 obesity BMI is 53.0. Would greatly benefit from weight reduction. Remains at higher risk of morbidity and mortality. 5. Tension headache Continue oxycodone as needed. Added bowel regimen today as well. Code status Full Prophylaxis Lovenox Disposition Pending Quality VTE Deep Vein Thrombosis/Pulmonary Embolism Present on Admission: No
[2022-05-25] MEDS: ATORVASTATIN 20 MG TABLET 40 MG PO (22:39)
[2022-05-26] VITALS: BP 143/97; PULSE 102; RESP 19; TEMP 36.3; O2SAT 95; O2SAT 96
[2022-05-26 04:00] VITALS: BP 149/102; PULSE 96; RESP 17; TEMP 36.6; O2SAT 98
[2022-05-26 05:51] LABS: Add Manual Diff / Slide Review NO; Basophils Absolute Auto 100 /uL (0-100); Basophils Percent Auto 0.7 % (0-2); Eosinophils Absolute Auto 200 /uL (0-450); Hematocrit 36.7 % (36-46); Lymphocytes Absolute Auto 2200 /uL (1100-4500); Lymphocytes Percent Auto 30.2 % (25-40); Mean Corpuscular HGB Conc 32.6 % (30-36); Mean Corpuscular Hemoglobin 25.5 PG (26-34); Mean Corpuscular Volume 78.2 fL (80-100); Monocytes Absolute Auto 700 /uL (0-900); Monocytes Percent Auto 9.7 % (3-14); Neutrophils Absolute Auto 4200 /uL (1500-7000); Neutrophils Percent Auto 56.4 % (50-75); Platelet Count 157 X10^3/uL (150-400); Red Blood Cell Count 4.69 X10^6/uL (4.0-5.2); Red Cell Distribution Width 16.7 % (11.6-14.8); White Blood Cell Count 7.4 X10^3/uL (4.5-11.0)
[2022-05-26 05:57] LABS: BUN Creatinine Ratio 22.6 (6-22); Blood Urea Nitrogen 21 mg/dL (7-17); Calcium 8.6 mg/dL (8.4-10.2); Carbon Dioxide 27 mmol/L (22-32); Chloride 103 mmol/L (98-107); Estimated Glomerular Filt Rate > 60 mL/min (>60); Glucose 108 mg/dL (70-100); HEMOLYSIS < 15 (0-50); Magnesium 2.2 mg/dL (1.6-2.3); Potassium 4.1 mmol/L (3.4-5.1); Sodium 137 mmol/L (137-145)
[2022-05-26 08:00] VITALS: BP 167/110; PULSE 94; RESP 20; TEMP 36.3; O2SAT 97; O2SAT 98
--- NOTE | 2022-05-26 08:27 | PC.NURSE ---
Addendum entered by George Merchant R.N. 05/26/22 13:24: Discharge instructions given. Pt discharged to care of family with instructions to see cardiology as ordered. Pt states understanding of C/C instructions. Original Note: Pt A&O offers no overt c/o other than being winded just walking to the BR. No c/o chest pain. Up in chair for b'fast. Daughter attentive at bedside. Pts HR NSR. Dr. Patel in discussing plan of care.
[2022-05-26] MEDS: TRAMADOL 50 MG TABLET PO (09:06)
[2022-05-26] MEDS: ENOXAPARIN 40 MG/0.4 ML SYRINGE SUBCUT (09:06)
[2022-05-26 09:07] VITALS: BP 164/110; BP 167/110; PULSE 94
[2022-05-26] MEDS: FUROSEMIDE 20 MG TABLET PO (09:07)
[2022-05-26] MEDS: SENNOSIDES 8.6 MG TABLET PO (09:07)
[2022-05-26] MEDS: carvediloL 3.125 MG TABLET PO (09:07)
[2022-05-26] MEDS: lisinopriL 5 MG TABLET PO (09:07)
[2022-05-26] MEDS: ASPIRIN EC 81 MG TABLET PO (09:08)
[2022-05-26 11:04] VITALS: BP 138/87; PULSE 90; RESP 17; TEMP 36.1; O2SAT 97
--- NOTE | 2022-05-26 17:30 | PM.DS.1 ---
History of Present Illness History of Present Illness Chief complaint: sent by [facility]/ANAYELI/chest pain T-1 Narrative: Per H&P: This is a 41 year old female with PMH of HTN, obesity who presented to the ER today with chest pain. Patient reports a headache yesterday afternoon, in the afternoon she took a norco given continued discomfort then developed some mild shortness of breath, particularly with lying flat. She also developed some chest presssure with radiation up her throat and into her neck at the time, it was more of a discomfort but worsened over the evening. Over the past two months patient has noted orthopnea, but this episode was worse and she had never felt this chest pressure. With increasing chest pressure she came in to be evaluated. She denies fever, chills, cough but does endorse dyspnea on exertion over the past few months as well. She denies lower extremity edema, nausea, vomiting, diarrhea, dysuria, urinary frequency, or abdominal pain. In the emergency room, patient was initially tachycardic (sinus), and hypertensive, but the remainder of her vital signs were unremarkable. Chest xray showed cardiomegaly, but no obvious fluid overload. D-dimer was elevated, and CTA was negative for PE but did show probable fluid overload with bilateral pleural effusions, but a normal heart size. EKG showed sinus tachycardia without evidence of ischemia. She had improvement in BP and chest discomfort with SL nitroglycerin. She was admitted for further evaluation of possible new diagnosis of heart failure and further risk stratification of her chest pain. Discharge Providers Provider Date of admission: 05/24/22 13:55 Discharge Date: 05/26/22 Primary care physician: Renaldo Gurrola MD Discharge provider: Nery Patel MD Summary Hospital Course Discharge Diagnosis: 1. Chest pain/pressure, negative troponins, resolved 2. New diagnosis of cardiomyopathy, systolic congestive heart failure, unclear etiology 3. HTN 4. Class 3 obesity w/BMI 53 5. Tension headache Hospital Course: Pt was admitted w/chest pain and was admitted for evaluation for acute coronary syndrome. As part of her work-up an echocardiogram was performed which revealed an LVEF of 25-30%. Initial recommendation by [facility] cardiology was for transfer to their facility for cardiology consult and work-up to include a coronary angiogram. However, they had no beds available. Pt's symptoms resolved and she was initiated on goal directed therapy. She was asymptomatic. After further discussion w/Dr. Mancilla, cardiology, he recommended she d/c home and f/u within one week for cardiology assessment. Pt and her spouse were comfortable w/the plan. She is discharged in stable condition. Status at Discharge Overall status at discharge: patient is progressing back to baseline Time Spent with Patient Time spent: Greater than 30 minutes Exam Vital Signs (past 8 hours): Oxygen Delivery Method Room Air Oxygen Flow Rate 0 Narrative Exam Narrative: GEN:? Adult female, Alert and oriented x 3, NAD HEENT:NC, Face symmetric CHEST: Respiratory excursions symmetric, CTAB CV: RRR, no M/R/G ABD: Soft, obese, NT/ND, BT present in all 4 quadrants, body habitus limits exam EXTR: warm, well perfused, no C/C/E SKIN: warm and dry, no rash NEURO: Alert and oriented x 3, nonfocal Objective Labs 05/26/22 05:18 05/26/22 05:18 PFS Medical History HTN (hypertension) Surgical History No pertinent past surgical history Family History Mother CAD (coronary artery disease) Uncle CAD (coronary artery disease) Social History household members: spouse and children Smoking Status: Unknown if ever smoked Discharge Plan Discharge Plan Patient Disposition: Home Provider Discharge Comment: You are being discharged home with new medications. Please follow the medication list closely and take them as prescribed. You will receive a call from [facility] on Sunday 05/28 for a follow-up appointment for further work-up of your new cardiomyopathy (weak heart). They are tentatively planning to do a heart cath (test to look at your heart arteries for blockage). If you do not get a phone call by mid on Saturday, please call them directly. Return to the ED for worsening shortness of breath, chest pain/tightness/pressure, or swelling in your legs/abdomen Monitor your weight daily in the morning (preferably nude) Call the cardiology office for more than 3# weight gain in 24 hours or 5# weight gain in 1 week. Discharge orders & Medications Prescriptions: New atorvastatin [Lipitor] 20 mg Tablet 40 mg PO BEDTIME Qty: 30 0RF potassium chloride [Klor-Con 10] 10 mEq Tablet Extended Release 10 meq PO DAILYCC Qty: 30 0RF aspirin 81 mg Tablet,Delayed Release (Dr/Ec) 81 mg PO DAILY Qty: 30 0RF tramadol 50 mg Tablet 50 mg PO TID PRN (Reason: Pain, Moderate (4-6)) Qty: 30 0RF carvedilol [Coreg] 3.125 mg Tablet 3.125 mg PO BID Qty: 60 0RF lisinopril 5 mg Tablet 5 mg PO DAILY Qty: 30 0RF furosemide 20 mg Tablet 20 mg PO DAILY Qty: 30 0RF Discontinued amlodipine 5 mg Tablet 5 mg PO DAILY chlorthalidone 25 mg Tablet 25 mg PO DAILY Follow up/Referrals: Renaldo Gurrola MD [Primary Care Provider] - Renaldo Cedillo MD [Physician] - Activity Restrictions/Additional Instructions: Please follow-up with your physician for recheck. I would also recommend following up with cardiology for further evaluation. Talk with your physician or Cardiology about getting an echo and they may follow with further cardiac evaluation. Take Lasix once daily until gone. Please make sure to continue your home blood pressure medications as prescribed. Prescription sent to Please return for new or worsening symptoms increasing chest pain, shortness of breath, lightheadedness or passing out, new swelling in your extremities or other new or concerning changes. Diet/Activity/Treatments Diet: Low-sodium Activity: As tolerated, avoid aerobic activity until cleared by cardiology Oxygen: N/A Visit Report/Discharge Packet Instructions: Echocardiogram, Cardiac Stress Test, DI for Heart Failure, Low-Sodium Diet Stand Alone Forms: Congestive Heart Failure, Patient Portal/API, Stroke Signs & Symptoms Discharge Data Primary Care Provider: Renaldo Gurrola Discharges patient from system. Discharge Date/Time: 05/26/22 13:02 Quality VTE Deep Vein Thrombosis/Pulmonary Embolism Present on Admission: No
== END 2022-05-26 13:02 | disposition home or self-care (01) | DRG 292 ==
LOC: ED 11:45 → AC 13:58
PROVIDERS: Family Medicine; Admitting Provider Internal Medicine; Emergency Provider Emergency Medicine; PCP Family Medicine; Referring Provider Emergency Medicine; Visit Provider Internal Medicine
DX: I11.0 Hypertensive heart disease with heart failure (principal); Z68.43 Body mass index [BMI] 50.0-59.9, adult; I42.9 Cardiomyopathy, unspecified; I50.20 Unspecified systolic (congestive) heart failure; E66.01 Morbid (severe) obesity due to excess calories; G44.209 Tension-type headache, unspecified, not intractable; Z20.822 Contact with and (suspected) exposure to COVID-19
CPT/HCPCS: 36415; 71045; 71275; 80048; 80053; 80061; 81003; 81025; 82728; 83036; 83540; 83550; 83605; 83735; 83880; 84443; 84484; 85025; 85379; 85610; 87633; 93005; 93306; 96374; 96375; 99284; G0378; J1650; J1940; J2270; J2405; Q9957

== ENCOUNTER → 2024-01-20 12:10 | Outpatient (CLI) | payer BC, SELFPAY ==
[2022-05-24 14:00] VITALS: BMI 53.0
--- NOTE | 2024-01-20 12:12 | DI.ECHO.S_ITS ---
[place] [facility]---------+ [facility] : : [id number] : [address] : : [id number] : : Phone: [phone] Echocardiogram Report + + :Name: VENICE OLMSTEAD Study Date: 01/20/2024 Height: 62 in : :[facility] ReadingLocation: Weight: 282 lb : : Gender: Female BSA: 2.2 m2 : :: 1980 Age: 43 yrs BP: 140/99 mmHg: :Reason For Study: SYSTOLIC HEART FAILURE : :Ordering Physician: YAMEL, : :JUVENCIO Performed By: Carson Naranjo : :Referring: JUVENCIO MANCILLA : + + Interpretation Summary 1) Normal left ventricular thickness and size with mildly reduced systolic function (EF 45-50%). 2) Normal right ventricular size and function. 3) No significant valvular abnormalities. 4) Compared to the Echo done 05/24/2022, LVEF has improved from 25-30% to 45-50% on this study. Procedure: A two-dimensional transthoracic echocardiogram with color flow and Doppler was performed. The study quality was technically adequate. Comparison is made with the echocardiogram of 05/24/2022. The patient was in normal sinus rhythm during the exam. Left Ventricle: The left ventricle is normal in size. There is normal left ventricular wall thickness. There is no ventricular septal defect visualized. The ejection fraction is estimated to be 45-50%. There is mild global hypokinesis of the left ventricle. Right Ventricle: The right ventricle is normal in size and function. Atria: The left atrial size is normal. Right atrial size is normal. There is no Doppler evidence for an interatrial shunt. Mitral Valve: The mitral valve is normal in structure and function. There is trace mitral regurgitation. Aortic Valve: The aortic valve is not well visualized. The aortic valve is grossly normal. There is no aortic valve stenosis. There is trace aortic regurgitation. Tricuspid Valve: The tricuspid valve is normal in structure and function. No tricuspid regurgitation. Pulmonic Valve: The pulmonic valve is normal in structure and function. There is no pulmonic valvular regurgitation. Great Vessels: The aortic root is normal size. The dimensions of the ascending aorta are normal. The pulmonary artery is normal size. The IVC is of normal diameter and collapses greater than 50% with a sniff. This suggests a low right atrial pressure of 3 mm Hg. Pericardium/ Pleura There is no pericardial effusion. There is no pleural effusion. MMode/2D Measurements & Calculations LVIDd: 4.8 cm LVOT diam: 2.0 cm LVIDs: 3.4 cm Ao root diam: 2.7 cm FS: 28.4 % asc Aorta Diam: 3.3 cm EPSS: 0.62 cm Ao Arch Diam (Prox Trans): 1.8 cm IVSd: 1.1 cm LVPWd: 1.0 cm LV velasquez. diameter/BSA (cm/m^2): 2.2 LV sys. diameter/BSA (cm/m^2): 1.6 LA A2 area: 16.5 cm2 RA long axis: 4.7 cm LA A4 area: 18.7 cm2 RA area: 12.6 cm2 LA length (vol): 5.2 cm RA vol: 28.9 ml LA vol: 50.3 ml RA : 13.0 ml/m2 LA vol index: 22.7 ml/m2 IVC diam: 1.6 cm RVD1 (basal): 2.7 cm RVD2 (mid): 2.2 cm TAPSE: 2.7 cm Doppler Measurements & Calculations Ao V2 max: 186.2 cm/sec LVOT Max Immanuel: 110.0 cm/sec Ao V2 mean: 132.5 cm/sec LV V1 max P.8 mmHg Ao max P.9 mmHg LV V1 VTI: 24.4 cm Ao mean P.7 mmHg JEANETH(I,D): 2.1 cm2 Ao V2 VTI: 37.3 cm JEANETH(V,D): 1.9 cm2 sev ratio: 0.65 JEANETH indexed to BSA (cm^2/m^2): 0.96 MV E max immanuel: 59.8 cm/sec PA V2 max: 110.2 cm/sec MV A max immanuel: 69.2 cm/sec PA V2 mean: 62.3 cm/sec MV E/A: 0.86 PA mean P.8 mmHg Med Peak E' Immanuel: 8.1 cm/sec E/E' med: 7.4 Lat Peak E' Immanuel: 7.5 cm/sec E/E' lat: 7.9 E/e' average: 7.6 MV dec time: 0.20 sec SV(LVOT): 79.3 ml Reading Physician:11:47 AM
== END ==
PROVIDERS: PCP Family Medicine; Referring Provider Internal Medicine Cardiovascular Disease; Visit Provider Internal Medicine Cardiovascular Disease
DX: I50.22 Chronic systolic (congestive) heart failure (principal)
CPT/HCPCS: 93306

== ENCOUNTER 2024-11-27 12:52 | Emergency (ER) | payer BC, SELFPAY ==
[2022-05-24 14:00] VITALS: BMI 53.0
[2024-11-27 12:55] VITALS: BP 182/105; PULSE 79; RESP 14; TEMP 36.6; O2SAT 96; BMI 54.3
--- NOTE | 2024-11-27 13:00 | DI.RAD.S_ITS ---
PROCEDURE: XR HAND LT MIN 3V INDICATIONS: dog bite TECHNIQUE: 3 views of the left hand acquired. COMPARISON: None. FINDINGS: Moderate diffuse soft tissue swelling of the left hand most notably between the 3rd and 4th and 4th and 5th metacarpophalangeal joints and proximal 2nd through 4th fingers. No radiographic evidence of displaced fracture, dislocation, osseous erosion or high attenuation soft tissue foreign body. No significant degenerative changes. IMPRESSION: Diffuse soft tissue swelling as discussed above suggests cellulitis or other process. Follow-up is needed. If symptoms persist or worsen, CT or MRI could be performed. Dictated by: Yinka Wood M.D. on 11/27/2024 at 14:32 Approved by: Yinka Wood M.D. on 11/27/2024 at 14:36
--- NOTE | 2024-11-27 13:23 | ED.ANIMALBIT ---
HPI - Animal Bite General Chief Complaint: Animal Bite Stated Complaint: dog bite left hand Time Seen by Provider: 11/27/24 13:07 Source: patient Mode of arrival: Ambulatory History of Present Illness HPI narrative: Ms. Prieto is a pleasant 44-year-old female with a past medical history of CHF, HTN, HLD who presents to the emergency department with her daughter for a dog bite to left hand. Patient states her 5-year-old Pet Iranian [place]ke started having a seizure, she attempted to comfort the dog but the dog bit her left hand. She has a puncture wound on the palmar aspect of the left hand MCP joint, and bruising and swelling on the dorsal aspect of the 4th MCP. Patient states the dog has continued foaming at the mouth and acting abnormally since this happened about 1.5 hours ago. The dog is not up-to-date on its rabies vaccine and she is concerned that the dog has rabies because he spends most of his time outdoors and does have a history of coming in contact with wild animals. Patient states she is in the process of contacting the police/animal control. She is having pain of the left hand especially with movement. She does not take blood thinners. Her Tdap is not up-to-date. She has not allergic to any antibiotics. No other injuries. Related Data Previous Rx's ?Medication ?Instructions ?Recorded aspirin 81 mg tablet,delayed 81 mg PO DAILY #30 tabs 05/26/22 release atorvastatin 20 mg tablet (Lipitor) 40 mg (2 x 20 mg) PO BEDTIME #30 05/26/22 tabs carvedilol 3.125 mg tablet (Coreg) 3.125 mg PO BID #60 tabs 05/26/22 furosemide 20 mg tablet 20 mg PO DAILY #30 tabs 05/26/22 lisinopril 5 mg tablet 5 mg PO DAILY #30 tabs 05/26/22 potassium chloride 10 mEq 10 meq PO DAILYCC #30 tabs 05/26/22 tablet,extended release (Klor-Con) tramadol 50 mg tablet 50 mg PO TID PRN Pain, Moderate 05/26/22 (4-6) #30 tabs hydrocodone 5 mg-acetaminophen 325 1 tab PO Q4-6H PRN pain #12 tabs 10/10/25 mg tablet Allergies Allergy/AdvReac Type Severity Reaction Status Date / Time No Known Drug Allergies Allergy Verified 12/11/24 11:33 Review of Systems Review of Systems ROS Unobtainable: All systems reviewed & are unremarkable except as noted in HPI and below Patient History Medical History HTN (hypertension) Surgical History No pertinent past surgical history Family History Mother CAD (coronary artery disease) Uncle CAD (coronary artery disease) Social History household members: spouse and children Smoking Status: Never smoker Smoking Status: Unknown if ever smoked alcohol intake frequency: holidays/special occasions only Exam Narrative Exam Narrative: GENERAL: 44 year old patient appears stated age. Obese patient, in no acute distress. HEAD: Atraumatic. Normocephalic. EYES: No scleral icterus. No injection or drainage. NECK: Trachea midline. Cervical ROM intact. CARDIOVASCULAR: Regular rate RESPIRATORY: ?Nonlabored respirations. ?Speaking in clear, full sentences. EXTREMITIES: LEFT hand with ecchymosis and edema overlying the dorsal aspect of the 4th MCP joint. On the palmar aspect of the MCP joint there is a small puncture wound. Patient still has brisk cap refill and sensation intact to light touch on the distal 4th finger. She still is able to flex and extend the hand including the MCP, PIP, DI P but with discomfort of the MCP. 2+ radial pulses bilaterally. No active bleeding. No erythema. NEURO: AOx3. ?Clear speech. ? Initial Vital Signs Initial Vital Signs: Vital Signs Temperature 97.9 F 11/27/24 12:55 Pulse Rate 79 11/27/24 12:55 Respiratory Rate 14 11/27/24 12:55 Blood Pressure 182/105 H 11/27/24 12:55 Pulse Oximetry 96 11/27/24 12:55 Oxygen Delivery Method Room Air 11/27/24 12:55 Course Orders Ordered: Discontinued Medications Hydrocodone Bitart/Acetaminophen (Hydrocodone/Acet 5/325 Tablet) 1 tab PO NOW ONE Stop: 11/27/24 13:35 Last Admin: 11/27/24 13:55 Dose: 1 tab Documented By: TEOFILO Amoxicillin/Clavulanate Potassium (Amoxicillin/Clav 875/125 Mg) 1 tab PO NOW ONE Stop: 11/27/24 13:35 Last Admin: 11/27/24 13:55 Dose: 1 tab Documented By: TEOFILO Bacitracin (Bacitracin Oint 0.9 Gm Pckt) 1 applic TOP NOW ONE Stop: 11/27/24 13:35 Last Admin: 11/27/24 13:55 Dose: 1 applic Documented By: TEOFILO Diphtheria/Tetanus/Acell Pertussis (Tet,Diph,Pertuss(Acell),Vac/Pf 0.5 Ml Syringe) 0.5 ml IM .ONCE ONE Stop: 11/27/24 13:35 Last Admin: 11/27/24 13:54 Dose: 0.5 ml Documented By: TEOFILO Rabies Immune Globulin (Rabies Immune Globulin 150 Unit/Ml) 2,613 unit 20 unit/kg (2613 unit) IM NOW ONE Stop: 11/27/24 13:35 Last Admin: 11/27/24 14:24 Dose: 2,613 unit Documented By: TEOFILO Rabies Vaccine (Rabies Vaccine (Rabavert) 2.5 Units Syringe) 2.5 units IM .ONCE ONE Stop: 11/27/24 13:35 Last Admin: 11/27/24 14:13 Dose: 2.5 units Documented By: TEOFILO Vital Signs Vital signs: Vital Signs - 8 hr 11/27/24 12:55 11/27/24 15:39 Temperature 97.9 F Pulse Rate 79 85 Respiratory Rate 14 16 Blood Pressure 182/105 H 158/83 H Pulse Oximetry 96 96 Oxygen Delivery Method Room Air Room Air MDM - Animal Bite Medical Records Attestation: I reviewed the patient's medical records. Imaging Data Right Hand XR: Radiologist's Impression: PROCEDURE: XR HAND LT MIN 3V INDICATIONS: dog bite TECHNIQUE: 3 views of the left hand acquired. COMPARISON: None. FINDINGS: Moderate diffuse soft tissue swelling of the left hand most notably between the 3rd and 4th and 4th and 5th metacarpophalangeal joints and proximal 2nd through 4th fingers. No radiographic evidence of displaced fracture, dislocation, osseous erosion or high attenuation soft tissue foreign body. No significant degenerative changes. IMPRESSION: Diffuse soft tissue swelling as discussed above suggests cellulitis or other process. Follow-up is needed. If symptoms persist or worsen, CT or MRI could be performed. Dictated by: Yinka Wood M.D. on 11/27/2024 at 14:32 Approved by: Yinka Wood M.D. on 11/27/2024 at 14:36 MDM Narrative Medical decision making narrative: 44 year-old female with a past medical history of CHF, HTN, HLD who presents to the emergency department with her daughter for a dog bite to left hand. Differential diagnosis includes but is not limited to dog bite, sprain, strain, fracture, contusion, rabies exposure, foreign body, etc. On exam patient is in no acute distress, nontoxic appearing, vital signs appropriate except for elevated blood pressure. Patient has bruising and swelling of the dorsal 4th MCP of the left hand, and a small puncture wound on the palmar surface of the hand after a bite from a Iranian [place]our[place] that was having a seizure. She is neurovascularly intact. The dog is not up-to-date on its rabies vaccine and is actively displaying signs that are concerning to the patient for rabies. She has never been vaccinated for rabies before. Patient is in the process of contacting the police, we will hopefully get the dog tested for rabies however we will not delay rabies post exposure prophylaxis at this time. Left hand x-ray ordered, left-hand is placed into a base and of warm water and diluted Betadine, we will update Tdap, perform rabies post exposure prophylaxis, treat pain with hydrocodone and start Augmentin. Patient will require multiple IM injections of rabies immune globulin due to volume. Discussed with pharmacy for appropriate injection site locations, states that Tdap and rabies vaccine can be given within the same deltoid separate sites, rabies vaccine and immunoglobulin need to be given at different sites therefore I will inject as much immune globulin around the left hand bite wound as possible and then the remainder of the immune globulin will be dispersed throughout the opposite deltoid of the rabies vaccine, and the vastus lateralis sites. Pharmacy states that 3 mL injections can be given into the vastus lateralis, multiple vastus lateralis sites can be given if needed. X-ray reveals diffuse soft tissue swelling, no foreign body or osseous abnormality. Patient received Tdap, rabies post exposure prophylaxis, wounds were extensively irrigated with diluted Betadine and cleansed, bacitracin was applied to puncture wound after it was extensively cleansed, and then a nonadherent dressing and an Alec wrap was applied to the hand for compression. Did prescribe full course of Augmentin b.i.d. times 10 days, pain medication, discussed proper wound care, discuss days 3, 7, 14 subsequent rabies vaccines. Discussed very strict ER return precautions. Patient verbalized understanding of all information agreeable with the plan, neurovascularly intact, stable for discharge home. Discharge Plan Departure Patient Disposition: Home Clinical Impression: Dog bite of left hand, Need for post exposure prophylaxis for rabies Instructions: DI for Dog Bite Activity Restrictions/Additional Instructions: Dear Conner, Thank you for coming to the emergency department. Today you were evaluated for dog bite of the left hand. Because your dog is not up-to-date on its rabies vaccines and was exhibiting abnormal behaviors, we did initiate the rabies post exposure prophylaxis. Today was day 0 and you received the vaccine and immunoglobulin. On days 3, 7, 14 you will need subsequent doses of the vaccine. Day 0: SaturdayNovember 27 Day 3: SaturdayNovember 30 Day 7: SaturdayDecember 04 Day 14: SaturdayDecember 11. Every day please clean your wound with warm soapy water, apply bacitracin, and then cover it back up. Please complete the full course of antibiotics. Please use RICE therapy for your pain in addition to ibuprofen/acetaminophen. Rest the painful area. Ice the area of pain/swelling for at least 15 minutes, 4x a day. Compress the area of swelling using a brace, wrap, or splint if applied. Elevate the painful or swollen extremity by supporting it above the level of the heart with pillows when sitting or laying. Return to the emergency department immediately if you develop redness spreading up the arm, fevers, severe pain or any other concerns. You have been prescribed a short course of narcotic medications. These are potentially dangerous and addictive medications that should be used carefully. While on these medications you cannot drive or operate heavy machinery. Additionally, you cannot sign legal documents or perform any duties such as this. Many people get constipated on narcotic medications so it would be advisable to discuss stool softeners with the pharmacist when you sampler pickup your prescription. Please understand that we cannot provide further refills of narcotics or controlled substances through the ED and your pain management will need to be through your Primary Care Provider Please follow up with your primary care doctor within the next 2-3 days for ER follow-up. (If you do not have a PCP you can call [phone]. ?to schedule an appointment with an [facility] Primary Care Provider) IF YOU DEVELOP ANY NEW OR WORSENING SYMPTOMS, RETURN TO THE ER! Please read the attached instructions, they highlight more specific treatments and interventions for you at home. Thank you for letting me participate in your care, Shantelle Alfaro PA-C Prescriptions: New hydrocodone-acetaminophen 5-325 mg tablet 1 tab PO Q4-6H PRN (Reason: pain) Qty: 12 0RF No Action atorvastatin [Lipitor] 20 mg Tablet 40 mg PO BEDTIME Qty: 30 0RF potassium chloride [Klor-Con 10] 10 mEq Tablet Extended Release 10 meq PO DAILYCC Qty: 30 0RF aspirin 81 mg Tablet,Delayed Release (Dr/Ec) 81 mg PO DAILY Qty: 30 0RF tramadol 50 mg Tablet 50 mg PO TID PRN (Reason: Pain, Moderate (4-6)) Qty: 30 0RF carvedilol [Coreg] 3.125 mg Tablet 3.125 mg PO BID Qty: 60 0RF lisinopril 5 mg Tablet 5 mg PO DAILY Qty: 30 0RF furosemide 20 mg Tablet 20 mg PO DAILY Qty: 30 0RF Referrals: Rnealdo Gurrola MD [Primary Care Provider, Family Practice] Stand Alone Forms: Patient Portal/API
[2024-11-27] MEDS: TET,DIPH,PERTUSS(ACELL),VAC/PF 0.5 ML SYRINGE IM (13:54)
[2024-11-27] MEDS: AMOXICILLIN/CLAV 875/125 MG 1 TAB PO (13:55)
[2024-11-27] MEDS: BACITRACIN OINT 0.9 GM PCKT 1 APPLIC TOP (13:55)
[2024-11-27] MEDS: RABIES VACCINE (RABAVERT) 2.5 UNITS SYRINGE IM (14:13)
[2024-11-27] MEDS: RABIES IMMUNE GLOBULIN 150 UNIT/ML 2613 UNIT IM (14:24)
--- NOTE | 2024-11-27 15:00 | PC.NURSE ---
pt had 2mls RIG in left deltoid, opposite arm of the RVaccine. 2 separate injections of 3mls in the left vastus lateralis. 1 injection 3mls in the right vastus lateralis
[2024-11-27 15:39] VITALS: BP 158/83; PULSE 85; RESP 16; O2SAT 96
== END 2024-11-27 15:41 | disposition home or self-care (01) ==
PROVIDERS: Emergency Provider Physician Assistant; PCP Family Medicine
DX: S61.452A Open bite of left hand, initial encounter (principal); W54.0XXA Bitten by dog, initial encounter; Z20.3 Contact with and (suspected) exposure to rabies; Z23 Encounter for immunization
CPT/HCPCS: 73130; 90377; 90471; 90675; 96372; 99283; 90715

== ENCOUNTER 2024-11-30 11:14 | Emergency (ER) | payer BC, SELFPAY ==
[2022-05-24 14:00] VITALS: BMI 53.0
[2024-11-30 11:48] VITALS: BP 177/112; PULSE 87; RESP 18; TEMP 36.6; O2SAT 96; BMI 54.3
[2024-11-30] MEDS: RABIES VACCINE (RABAVERT) 2.5 UNITS SYRINGE IM (12:08)
--- NOTE | 2024-11-30 12:14 | ED.RECABL ---
HPI - Recheck/Abnormal Lab/Rx <Shantelle Alfaro PA-C - Last Filed: 11/30/24 16:53> General Chief Complaint: Recheck/Abnormal Lab/Rx Stated Complaint: needs 2nd Rabies shot Time Seen by Provider: 11/30/24 11:31 Source: patient Mode of arrival: Ambulatory History of Present Illness HPI narrative: Ms. Prieto is a very pleasant 44-year-old female with a past medical history of CHF, HTN, HLD who presents to the emergency department for her 2nd rabies vaccine after sustaining a dog bite to her left hand on 11/27/2024. I initially evaluated the patient on Saturday, her unvaccinated dog started foaming at the mouth, having a seizure, accidentally bit her in the left hand. The dog did unfortunately , was unable to be tested for rabies. Therefore rabies post exposure prophylaxis was initiated. Patient had x-ray of the left hand which revealed no broken bones. She was started on Augmentin, had extensive wound Care, Alec wrap applied. At this time patient states her left hand is doing much better, the swelling has resolved, no redness, edema, fevers or chills. She is here for her 2nd rabies vaccine, she has no other complaints. Her blood pressure is elevated today, she denies any chest pain shortness of breath or changes to her blood pressure regimen. Related Data Previous Rx's ?Medication ?Instructions ?Recorded aspirin 81 mg tablet,delayed 81 mg PO DAILY #30 tabs 05/26/22 release atorvastatin 20 mg tablet (Lipitor) 40 mg (2 x 20 mg) PO BEDTIME #30 05/26/22 tabs carvedilol 3.125 mg tablet (Coreg) 3.125 mg PO BID #60 tabs 05/26/22 furosemide 20 mg tablet 20 mg PO DAILY #30 tabs 05/26/22 lisinopril 5 mg tablet 5 mg PO DAILY #30 tabs 05/26/22 potassium chloride 10 mEq 10 meq PO DAILYCC #30 tabs 05/26/22 tablet,extended release (Klor-Con) tramadol 50 mg tablet 50 mg PO TID PRN Pain, Moderate 05/26/22 (4-6) #30 tabs amoxicillin 875 mg-potassium 1 tab PO Q12H 10 days #20 tabs 11/27/24 clavulanate 125 mg tablet hydrocodone 5 mg-acetaminophen 325 1 tab PO Q4-6H PRN pain #12 tabs 11/27/24 mg tablet Allergies Allergy/AdvReac Type Severity Reaction Status Date / Time No Known Drug Allergies Allergy Verified 11/30/24 11:49 Review of Systems <Shantelle Alfaro PA-C - Last Filed: 11/30/24 16:53> Review of Systems ROS Unobtainable: All systems reviewed & are unremarkable except as noted in HPI and below Patient History <Shantelle Alfaro PA-C - Last Filed: 11/30/24 16:53> Medical History HTN (hypertension) Surgical History No pertinent past surgical history Family History Mother CAD (coronary artery disease) Uncle CAD (coronary artery disease) Social History household members: spouse and children Smoking Status: Never smoker Smoking Status: Never smoker alcohol intake frequency: holidays/special occasions only Exam <Shantelle Alfaro PA-C - Last Filed: 11/30/24 16:53> Narrative Exam Narrative: GENERAL: 44 year old patient appears stated age. Well-developed patient, in no acute distress. HEAD: Atraumatic. Normocephalic. EYES: No scleral icterus. No injection or drainage. NECK: Trachea midline. Cervical ROM intact. CARDIOVASCULAR: Regular rate RESPIRATORY: ?Nonlabored respirations. ?Speaking in clear, full sentences. ? EXTREMITIES: Left hand with ecchymoses on the dorsal aspect along the 4th and 3rd fingers, mild ecchymoses on the palmar aspect of the well with a puncture wound along the 4th MCP region. No erythema, edema, or increased warmth. Patient has full range of motion of the hand, 2+ radial pulses bilaterally, brisk cap refill in the fingertips. NEURO: AOx3. ?Clear speech. ?Moves all 4 extremities appropriately. Initial Vital Signs Initial Vital Signs: Vital Signs Temperature 98 F 11/30/24 11:48 Pulse Rate 87 11/30/24 11:48 Respiratory Rate 18 11/30/24 11:48 Blood Pressure 177/112 H 11/30/24 11:48 Pulse Oximetry 96 11/30/24 11:48 Oxygen Delivery Method Room Air 11/30/24 11:48 <Zohra Jaramillo DO - Last Filed: 12/01/24 07:09> Initial Vital Signs Initial Vital Signs: Vital Signs Temperature 98 F 11/30/24 11:48 Pulse Rate 87 11/30/24 11:48 Respiratory Rate 18 11/30/24 11:48 Blood Pressure 177/112 H 11/30/24 11:48 Pulse Oximetry 96 11/30/24 11:48 Oxygen Delivery Method Room Air 11/30/24 11:48 Course <Shantelle Alfaro PA-C - Last Filed: 11/30/24 16:53> Orders Ordered: Discontinued Medications Rabies Vaccine (Rabies Vaccine (Rabavert) 2.5 Units Syringe) 2.5 units IM .ONCE ONE Stop: 11/30/24 11:58 Last Admin: 11/30/24 12:08 Dose: 2.5 units Documented By: [facility] Vital Signs Vital signs: Vital Signs - 8 hr 11/30/24 11:48 11/30/24 12:57 Temperature 98 F Pulse Rate 87 75 Respiratory Rate 18 18 Blood Pressure 177/112 H 163/96 H Pulse Oximetry 96 96 Oxygen Delivery Method Room Air Room Air <Zohra Jaramillo DO - Last Filed: 12/01/24 07:09> Orders Ordered: Discontinued Medications Rabies Vaccine (Rabies Vaccine (Rabavert) 2.5 Units Syringe) 2.5 units IM .ONCE ONE Stop: 11/30/24 11:58 Last Admin: 11/30/24 12:08 Dose: 2.5 units Documented By: [facility] Vital Signs Vital signs: Vital Signs - 8 hr 11/30/24 11:48 11/30/24 12:57 Temperature 98 F Pulse Rate 87 75 Respiratory Rate 18 18 Blood Pressure 177/112 H 163/96 H Pulse Oximetry 96 96 Oxygen Delivery Method Room Air Room Air MDM - Recheck/Abnormal Lab/Rx <MANNY Ricketts Last Filed: 11/30/24 16:53> Medical Records Attestation: I reviewed the patient's medical records. MDM Narrative Medical decision making narrative: 44-year-old female with a past medical history of CHF, HTN, HLD who presents to the emergency department for her 2nd rabies vaccine after sustaining a dog bite to her left hand on 11/27/2024. Differential diagnosis includes but is not limited to rabies post exposure prophylaxis, dog bite, wound check, etc. On exam patient is in no acute distress, nontoxic appearing, vital signs appropriate except for elevated blood pressure. Patient did take her morning blood pressure medications, she is not experiencing any chest pain shortness of breath or other concerns. She is here for her 2nd rabies vaccine, and also a wound check of her left hand. Patient's left hand wound is healing wonderfully, she has bruising of the hand but no longer has any edema, there is no erythema drainage or increased warmth. She has no concerns. She received her 2nd rabies vaccine, she will require day 7 and 14 as well as unfortunately the dog did pass away and was not tested for rabies. Discussed continued wound care of the left hand, Alec wrap. Recommended daily blood pressure monitoring. Discussed strict ER return precautions. Patient verbalized understanding all information agreeable with the plan. She is stable for discharge home, BP imporved. Discharge Plan Departure Patient Disposition: Home Clinical Impression: Need for post exposure prophylaxis for rabies, Encounter for wound re-check, Elevated blood pressure reading Instructions: DI for High Blood Pressure, DI for Dog Bite Activity Restrictions/Additional Instructions: Dear Yeimi Conner, Today you received your day 3 rabies post exposure prophylaxis vaccine. You need to return for day 7 and day 14. Your dog bite wound is healing very well. Please continue keeping the wound clean and covered. As we discussed, use Tylenol for breakthrough pain, limit your use of ibuprofen. Please use RICE therapy for your pain in addition to ibuprofen/acetaminophen. Rest the painful area. Ice the area of pain/swelling for at least 15 minutes, 4x a day. Compress the area of swelling using a brace, wrap, or splint if applied. Elevate the painful or swollen extremity by supporting it above the level of the heart with pillows when sitting or laying. <del>Day</del> <del>0:</del> <del>Saturday</del> <del>November</del> <del></del> <del>Day</del> <del>3:</del> <del>Saturday</del> <del>November</del> <del></del> Day 7: SaturdayDecember 04 Day 14: SaturdayDecember 11. Your blood pressure was elevated today. Please continue taking your blood pressure about once a day, write down these values and bring them with you to your next primary care doctor's appointment. Return to the ER with any new or worsening symptoms, fevers, chills, chest pain, shortness of breath, redness of the hand or swelling or any other concerns. Please follow up with your primary care doctor within the next 2-3 days for ER follow-up. (If you do not have a PCP you can call [phone]. ?to schedule an appointment with an [facility] Primary Care Provider) IF YOU DEVELOP ANY NEW OR WORSENING SYMPTOMS, RETURN TO THE ER! Please read the attached instructions, they highlight more specific treatments and interventions for you at home. Thank you for letting me participate in your care, Shantelle Alfaro PA-C Prescriptions: No Action atorvastatin [Lipitor] 20 mg Tablet 40 mg PO BEDTIME Qty: 30 0RF potassium chloride [Klor-Con 10] 10 mEq Tablet Extended Release 10 meq PO DAILYCC Qty: 30 0RF aspirin 81 mg Tablet,Delayed Release (Dr/Ec) 81 mg PO DAILY Qty: 30 0RF tramadol 50 mg Tablet 50 mg PO TID PRN (Reason: Pain, Moderate (4-6)) Qty: 30 0RF carvedilol [Coreg] 3.125 mg Tablet 3.125 mg PO BID Qty: 60 0RF lisinopril 5 mg Tablet 5 mg PO DAILY Qty: 30 0RF furosemide 20 mg Tablet 20 mg PO DAILY Qty: 30 0RF amoxicillin-pot clavulanate 875-125 mg tablet 1 tab PO Q12H 10 Days Qty: 20 0RF hydrocodone-acetaminophen 5-325 mg tablet 1 tab PO Q4-6H PRN (Reason: pain) Qty: 12 0RF Referrals: Renaldo Gurrola MD [Primary Care Provider, Family Practice] Stand Alone Forms: Patient Portal/API ED Sign-out <Zohra Jaramillo DO - Last Filed: 12/01/24 07:09> Cosign ED Attending Ernestine Attestation: I was available for consultation.
[2024-11-30 12:57] VITALS: BP 163/96; PULSE 75; RESP 18; O2SAT 96
== END 2024-11-30 12:59 | disposition home or self-care (01) ==
PROVIDERS: Emergency Provider Physician Assistant; PCP Family Medicine
DX: Z23 Encounter for immunization (principal); Z48.00 Encounter for change or removal of nonsurgical wound dressing; I50.9 Heart failure, unspecified; I11.0 Hypertensive heart disease with heart failure
CPT/HCPCS: 90471; 90675; 99283

== ENCOUNTER 2024-12-04 09:52 | Emergency (ER) | payer BC, SELFPAY ==
[2022-05-24 14:00] VITALS: BMI 53.0
[2024-12-04 10:06] VITALS: BP 162/96; PULSE 83; RESP 18; TEMP 36.1; O2SAT 99
--- NOTE | 2024-12-04 10:38 | ED.RECABL ---
HPI - Recheck/Abnormal Lab/Rx General Chief Complaint: Recheck/Abnormal Lab/Rx Stated Complaint: Needs rabies shot, day 7 Time Seen by Provider: 12/04/24 10:22 Source: patient Mode of arrival: Family Vehicle History of Present Illness HPI narrative: Patient is a healthy 44-year-old female presenting today for her 3rd rabies vaccine. She reports it was her dog who bit her, she still has some pain in her left middle finger but she is able flex and extend, but feels like there some tugging. No significant erythema overall appears improved. She reports that her dog was not up-to-date with its vaccines in the dog has already been put down. She would like to continue with the rabies vaccinations. Related Data Previous Rx's ?Medication ?Instructions ?Recorded aspirin 81 mg tablet,delayed 81 mg PO DAILY #30 tabs 05/26/22 release atorvastatin 20 mg tablet (Lipitor) 40 mg (2 x 20 mg) PO BEDTIME #30 05/26/22 tabs carvedilol 3.125 mg tablet (Coreg) 3.125 mg PO BID #60 tabs 05/26/22 furosemide 20 mg tablet 20 mg PO DAILY #30 tabs 05/26/22 lisinopril 5 mg tablet 5 mg PO DAILY #30 tabs 05/26/22 potassium chloride 10 mEq 10 meq PO DAILYCC #30 tabs 05/26/22 tablet,extended release (Klor-Con) tramadol 50 mg tablet 50 mg PO TID PRN Pain, Moderate 05/26/22 (4-6) #30 tabs amoxicillin 875 mg-potassium 1 tab PO Q12H 10 days #20 tabs 11/27/24 clavulanate 125 mg tablet hydrocodone 5 mg-acetaminophen 325 1 tab PO Q4-6H PRN pain #12 tabs 1025 mg tablet Allergies Allergy/AdvReac Type Severity Reaction Status Date / Time No Known Drug Allergies Allergy Verified 12/04/24 10:06 Patient History Medical History HTN (hypertension) Surgical History No pertinent past surgical history Family History Mother CAD (coronary artery disease) Uncle CAD (coronary artery disease) Social History household members: spouse and children Smoking Status: Never smoker Smoking Status: Never smoker alcohol intake frequency: holidays/special occasions only Exam Initial Vital Signs Initial Vital Signs: Vital Signs Temperature 97.0 F L 12/04/24 10:06 Pulse Rate 83 12/04/24 10:06 Respiratory Rate 18 12/04/24 10:06 Blood Pressure 162/96 H 12/04/24 10:06 Pulse Oximetry 99 12/04/24 10:06 Oxygen Delivery Method Room Air 12/04/24 10:06 GENERAL: Well-appearing, well-nourished and in no acute distress. CARDIOVASCULAR: peripheral pulses in tact, cap refill <2 sec RESPIRATORY: No respiratory distress, speaks in full sentences without difficulty EXTREMITIES: Normal range of motion, no clubbing or edema. Neurovascularly intact Left hand able to flex and extend all fingers the finger she does have some decreased flexion. No significant swelling lots of contusion NEUROLOGICAL: Cranial nerves II through XII grossly intact. Normal gait and speech. SKIN: Warm, dry, no petechiae, no rashes or lesions. Left hand significant contusion some mild swelling no erythema Course Orders Ordered: Discontinued Medications Rabies Vaccine (Rabies Vaccine (Rabavert) 2.5 Units Syringe) 2.5 units IM .ONCE ONE Stop: 12/04/24 10:23 Last Admin: 12/04/24 12:08 Dose: 2.5 units Documented By: SB Vital Signs Vital signs: Vital Signs - 8 hr 12/04/24 10:06 Temperature 97.0 F L Pulse Rate 83 Respiratory Rate 18 Blood Pressure 162/96 H Pulse Oximetry 99 Oxygen Delivery Method Room Air MDM - Recheck/Abnormal Lab/Rx MDM Narrative Medical decision making narrative: At this time patient is here for her 3rd rabies vaccine overall hand appears to be healing. No concern for flexor tendon synovitis. I do think her risk of rabies is low however her dog did not have its vaccines and did bite her and now has been put down. She wants to continue with series. Discharge Plan Departure Patient Disposition: Home Clinical Impression: Need for post exposure prophylaxis for rabies Dog bite of left hand Qualifiers: Encounter type: initial encounter Qualified Code(s): S61.452A - Open bite of left hand, initial encounter Activity Restrictions/Additional Instructions: *You have been diagnosed with *What to do: <del>Day</del> <del>0:</del> <del>Saturday</del> <del>November</del> <del></del> <del>Day</del> <del>3:</del> <del>Saturday</del> <del>November</del> <del></del> <del>Day</del> <del>7:</del> <del>Saturday</del> <del>November</del> <del></del> Day 14: SaturdayDecember 11. *Continue to take medications as directed *Follow up with your primary care provider in 2-3 days or call [phone] *Return to ER if you should have increasing redness swelling inability to move or any new, worsening or concerning symptoms Prescriptions: No Action atorvastatin [Lipitor] 20 mg Tablet 40 mg PO BEDTIME Qty: 30 0RF potassium chloride [Klor-Con 10] 10 mEq Tablet Extended Release 10 meq PO DAILYCC Qty: 30 0RF aspirin 81 mg Tablet,Delayed Release (Dr/Ec) 81 mg PO DAILY Qty: 30 0RF tramadol 50 mg Tablet 50 mg PO TID PRN (Reason: Pain, Moderate (4-6)) Qty: 30 0RF carvedilol [Coreg] 3.125 mg Tablet 3.125 mg PO BID Qty: 60 0RF lisinopril 5 mg Tablet 5 mg PO DAILY Qty: 30 0RF furosemide 20 mg Tablet 20 mg PO DAILY Qty: 30 0RF amoxicillin-pot clavulanate 875-125 mg tablet 1 tab PO Q12H 10 Days Qty: 20 0RF hydrocodone-acetaminophen 5-325 mg tablet 1 tab PO Q4-6H PRN (Reason: pain) Qty: 12 0RF Referrals: Renaldo Gurrola MD [Primary Care Provider, Family Practice] Stand Alone Forms: Patient Portal/API
[2024-12-04] MEDS: RABIES VACCINE (RABAVERT) 2.5 UNITS SYRINGE IM (12:08)
[2024-12-04 12:57] VITALS: BP 138/90; PULSE 85; RESP 16; TEMP 36.4; O2SAT 97
== END 2024-12-04 12:58 | disposition home or self-care (01) ==
PROVIDERS: Emergency Provider Emergency Medicine; PCP Family Medicine
DX: Z23 Encounter for immunization (principal); Z20.3 Contact with and (suspected) exposure to rabies
CPT/HCPCS: 90471; 90675; 99283

== ENCOUNTER 2024-12-11 11:22 | Emergency (ER) | payer BC, SELFPAY ==
[2022-05-24 14:00] VITALS: BMI 53.0
--- NOTE | 2024-12-11 11:32 | DI.RAD.S_ITS ---
PROCEDURE: XR HAND LT MIN 3V INDICATIONS: dog bite 11/27/24, persistent 4th MCP joint pain TECHNIQUE: 3 views of the hand(s) acquired. COMPARISON: [facility], SUSAN, XR HAND LT MIN 3V, 11/27/2024, 13:09. FINDINGS: Bones: No fractures or dislocations. Carpal bones are normally aligned. No suspicious bony lesions. Soft tissues: No suspicious soft tissue calcifications. No radiopaque foreign body or soft tissue gas. IMPRESSION: No acute bony abnormality. Dictated by: Mickey Gleason M.D. on 12/11/2024 at 12:00 Approved by: Mickey Gleason M.D. on 12/11/2024 at 12:00
[2024-12-11 11:33] VITALS: BP 137/85; PULSE 87; RESP 18; TEMP 36.8; O2SAT 98; BMI 52.3
--- NOTE | 2024-12-11 11:42 | ED_ITS ---
HPI - Recheck/Abnormal Lab/Rx <Shantelle Alfaro PA-C - Last Filed: 12/11/24 12:56> General Chief Complaint: Recheck/Abnormal Lab/Rx Stated Complaint: last Rabies Shot Time Seen by Provider: 12/11/24 11:27 Source: patient Mode of arrival: Ambulatory History of Present Illness HPI narrative: Ms. Prieto is a very pleasant 44-year-old female with a past medical history of CHF, HTN, HLD who presents to the emergency department for her 4th and final rabies vaccine after sustaining a dog bite to her left hand on 11/27/2024. Overall she has been doing well, in the hand has been healing nicely, she has not having any redness swelling fevers flu-like symptoms. She is having some mild persistent pain of the left 4th MCP joint. No other concerns. Related Data Previous Rx's ?Medication ?Instructions ?Recorded aspirin 81 mg tablet,delayed 81 mg PO DAILY #30 tabs 0 05/26/22 release atorvastatin 20 mg tablet (Lipitor) 40 mg (2 x 20 mg) PO BEDTIME #30 05/26/22 tabs carvedilol 3.125 mg tablet (Coreg) 3.125 mg PO BID #60 tabs 05/26/22 furosemide 20 mg tablet 20 mg PO DAILY #30 tabs 04/0 10/10 lisinopril 5 mg tablet 5 mg PO DAILY #30 tabs 05/26 potassium chloride 10 mEq 10 meq PO DAILYCC #30 tabs 0 05/26/22 tablet,extended release (Klor-Con) tramadol 50 mg tablet 50 mg PO TID PRN Pain, Moder ate 05/26/22 (4-6) #30 tabs hydrocodone 5 mg-acetaminophen 325 1 tab PO Q4-6H PRN pain #12 tabs 10/10/25 mg tablet Allergies Allergy/AdvReac Type Severity Reaction Status Date / Time No Known Drug Allergies Allergy Verified 12/11/24 11:33 Review of Systems <Shantelle Alfaro PA-C - Last Filed: 12/11/24 12:56> Review of Systems ROS Unobtainable: All systems reviewed & are unremarkable except as noted in HPI and below Patient History <Shantelle Alfaro PA-C - Last Filed: 12/11/24 12:56> Medical History HTN (hypertension) Surgical History No pertinent past surgical history Family History Mother CAD (coronary artery disease) Uncle CAD (coronary artery disease) Social History household members: spouse and children Smoking Status: Never smoker Smoking Status: Never smoker alcohol intake frequency: holidays/special occasions only Exam <Shantelle Alfaro PA-C - Last Filed: 12/11/24 12:56> Narrative Exam Narrative: GENERAL: 44 year old patient appears stated age. Well-developed patient, in no acute distress. HEAD: Atraumatic. Normocephalic. No scleral icterus. No injection or drainage. NECK: Trachea midline. Cervical ROM intact. CARDIOVASCULAR: Regular rate RESPIRATORY: ?Nonlabored respirations. ?Speaking in clear, full sentences. ? EXTREMITIES: Left hand with mild soft area of edema between 3rd and 4th MCP joints on dorsal aspect. Mild tenderness to palpation of 4th MCP. There is no redness, edema, increased warmth. She is brisk cap refill in the fingertips, 2+ radial pulse and full range of motion of the left hand, is able to make a tight fist. NEURO: AOx3. ?Clear speech. ?Moves all 4 extremities appropriately. SKIN: No rash or erythema of visible areas Initial Vital Signs Initial Vital Signs: Vital Signs Temperature 98.2 F 12/11/24 11:33 Pulse Rate 87 12/11/24 11:33 Respiratory Rate 18 12/11/24 11:33 Blood Pressure 137/85 12/11/24 11:33 Pulse Oximetry 98 12/11/24 11:33 Oxygen Delivery Method Room Air 12/11/24 11:33 <Emily Dutton MD - Last Filed: 12/11/24 16:50> Initial Vital Signs Initial Vital Signs: Vital Signs Temperature 98.2 F 12/11/24 11:33 Pulse Rate 87 12/11/24 11:33 Respiratory Rate 18 12/11/24 11:33 Blood Pressure 137/85 12/11/24 11:33 Pulse Oximetry 98 12/11/24 11:33 Oxygen Delivery Method Room Air 12/11/24 11:33 Course <Shantelle Alfaro PA-C - Last Filed: 12/11/24 12:56> Orders Ordered: ED Orders 12/11/24 11:32 XR hand LT min 3V Stat Discontinued Medications Rabies Vaccine (Rabies Vaccine (Rabavert) 2.5 Units Syringe) 2.5 units IM .ONCE ONE Stop: 12/11/24 11:33 Last Admin: 12/11/24 11:45 Dose: 2.5 units Documented By: RB Vital Signs Vital signs: Vital Signs - 8 hr 12/11/24 11:33 12/11/24 12:31 Temperature 98.2 F 98.1 F Pulse Rate 87 68 Respiratory Rate 18 16 Blood Pressure 137/85 136/78 Pulse Oximetry 98 97 Oxygen Delivery Method Room Air Room Air <Emily Dutton MD - Last Filed: 12/11/24 16:50> Orders Ordered: ED Orders 12/11/24 11:32 XR hand LT min 3V Stat Discontinued Medications Rabies Vaccine (Rabies Vaccine (Rabavert) 2.5 Units Syringe) 2.5 units IM .ONCE ONE Stop: 12/11/24 11:33 Last Admin: 12/11/24 11:45 Dose: 2.5 units Documented By: RB Vital Signs Vital signs: Vital Signs - 8 hr 12/11/24 11:33 12/11/24 12:31 Temperature 98.2 F 98.1 F Pulse Rate 87 68 Respiratory Rate 18 16 Blood Pressure 137/85 136/78 Pulse Oximetry 98 97 Oxygen Delivery Method Room Air Room Air MDM - Recheck/Abnormal Lab/Rx <Shantelle Alfaro PA-C - Last Filed: 12/11/24 12:56> Medical Records Attestation: I reviewed the patient's medical records. Imaging Data Left Hand XR: Radiologist's Impression: PROCEDURE: XR HAND LT MIN 3V INDICATIONS: dog bite 11/27/24, persistent 4th MCP joint pain TECHNIQUE: 3 views of the hand(s) acquired. COMPARISON: [facility], , XR HAND LT MIN 3V, 11/27/2024, 13:09. FINDINGS: Bones: No fractures or dislocations. Carpal bones are normally aligned. No suspicious bony lesions. Soft tissues: No suspicious soft tissue calcifications. No radiopaque foreign body or soft tissue gas. IMPRESSION: No acute bony abnormality. Dictated by: Mickey Gleason M.D. on 12/11/2024 at 12:00 Approved by: Mickey Gleason M.D. on 12/11/2024 at 12:00 [facility] Narrative Medical decision making narrative: 44-year-old female with a past medical history of CHF, HTN, HLD who presents to the emergency department for her 4th and final rabies vaccine after sustaining a dog bite to her left hand on 11/27/2024. Overall she has been doing well, in the hand has been healing nicely, she has not having any redness swelling fevers flu-like symptoms. She is having some mild persistent pain of the left 4th MCP joint. No other concerns. Differential diagnosis includes but is not limited to post exposure rabies prophylaxis, hematoma of hand, contusion, remote fracture, sprain, strain, etc. On exam patient is in no acute distress, nontoxic appearing, all vital signs within normal limits. She is here for her final rabies vaccine after having a dog bite to the left hand from an unvaccinated dog that due to its abnormal seizure-like activity ended up being put down with concern for rabies but was not tested. Patient's hand has been healing very well, there is no redness swelling or signs of infection, she is having mild persistent pain of the 4th dorsal MCP, after shared decision-making we will repeat radiographs to compare to prior and assure no remote bony abnormality. Left hand x-ray reveals no acute bony abnormality. Patient received her final rabies vaccine. Discussed supportive care of left hand including rice therapy, PCP follow up, ER return precautions. Patient verbalized understanding of all information agreeable with the plan. She is stable for discharge home. Discharge Plan Departure Patient Disposition: Home Clinical Impression: Need for post exposure prophylaxis for rabies Dog bite of left hand Qualifiers: Encounter type: initial encounter Qualified Code(s): S61.452A - Open bite of left hand, initial encounter Instructions: DI for Hand Pain Activity Restrictions/Additional Instructions: Dear Ms. Prieto, Thank you for coming to the emergency department. Today you were evaluated for your 4th and final rabies vaccine. We repeated an x-ray today which revealed no bone abnormalities. Please use RICE therapy for your pain in addition to ibuprofen/acetaminophen. Rest the painful area. Ice the area of pain/swelling for at least 15 minutes, 4x a day. Compress the area of swelling using a brace, wrap, or splint if applied. Elevate the painful or swollen extremity by supporting it above the level of the heart with pillows when sitting or laying. Please follow up with your primary care doctor within the next 2-3 days for ER follow-up. (If you do not have a PCP you can call [phone]. ?to schedule an appointment with an [facility] Primary Care Provider) IF YOU DEVELOP ANY NEW OR WORSENING SYMPTOMS, RETURN TO THE ER! Please read the attached instructions, they highlight more specific treatments and interventions for you at home. Thank you for letting me participate in your care, Shantelle Alfaro PA-C Prescriptions: No Action atorvastatin [Lipitor] 20 mg Tablet 40 mg PO BEDTIME Qty: 30 0RF potassium chloride [Klor-Con 10] 10 mEq Tablet Extended Release 10 meq PO DAILYCC Qty: 30 0RF aspirin 81 mg Tablet,Delayed Release (Dr/Ec) 81 mg PO DAILY Qty: 30 0RF tramadol 50 mg Tablet 50 mg PO TID PRN (Reason: Pain, Moderate (4-6)) Qty: 30 0RF carvedilol [Coreg] 3.125 mg Tablet 3.125 mg PO BID Qty: 60 0RF lisinopril 5 mg Tablet 5 mg PO DAILY Qty: 30 0RF furosemide 20 mg Tablet 20 mg PO DAILY Qty: 30 0RF hydrocodone-acetaminophen 5-325 mg tablet 1 tab PO Q4-6H PRN (Reason: pain) Qty: 12 0RF Referrals: Renaldo Gurrola MD [Primary Care Provider, Family Practice] Stand Alone Forms: Patient Portal/API ED Sign-out <Emily Dutton MD - Last Filed: 12/11/24 16:50> Cosign ED Attending Cosdodieature Attestation: I was immediately available in the department for consultation throughout this patient's visit. Emily Dutton MD
[2024-12-11] MEDS: RABIES VACCINE (RABAVERT) 2.5 UNITS SYRINGE IM (11:45)
[2024-12-11 12:31] VITALS: BP 136/78; PULSE 68; RESP 16; TEMP 36.7; O2SAT 97
== END 2024-12-11 12:32 | disposition home or self-care (01) ==
PROVIDERS: Emergency Provider Physician Assistant; PCP Family Medicine
DX: Z23 Encounter for immunization (principal); S61.452D Open bite of left hand, subsequent encounter; W54.0XXD Bitten by dog, subsequent encounter
CPT/HCPCS: 73130; 90471; 90675; 99283